=== PATIENT | female | born 1955 | race Caucasian/White ===

== ENCOUNTER → 2017-04-06 | Outpatient (CLI) | payer MEDICARE, OTHER ==
--- NOTE | 2017-04-08 07:10 | MM ---
Reason for exam: screening (asymptomatic). Last mammogram was performed 1 year ago. History: Patient is postmenopausal. Physical Findings: A clinical breast exam by your physician is recommended on an annual basis and results should be correlated with mammographic findings. MG 3D Screening Mammo W/Cad Bilateral CC and MLO view(s) were taken. Prior study comparison: March 30, 2016, bilateral MG 3d screening mammo w/cad. February 14, 2015, bilateral MG screening mammo w CAD. November 22, 2013, bilateral MG screening mammo w CAD. There are scattered fibroglandular densities. There is chronic nodularity in the left breast. Stable benign oil cysts. No significant changes when compared with prior studies. ASSESSMENT: Negative, BI-RAD 1 RECOMMENDATION: Routine screening mammogram of both breasts in 1 year.
== END ==
LOC: RADMAMWWP 09:23
PROVIDERS: ATTEND Family Medicine
DX: Z12.31 Encounter for screening mammogram for malignant neoplasm of breast (principal)
CPT/HCPCS: 77063; G0202

== ENCOUNTER → 2018-06-06 | Outpatient (CLI) | payer MEDICARE, OTHER ==
--- NOTE | 2018-06-07 13:07 | MM ---
Reason for exam: screening (asymptomatic). Last mammogram was performed 1 year and 2 months ago. History: Patient is postmenopausal. Physical Findings: A clinical breast exam by your physician is recommended on an annual basis and results should be correlated with mammographic findings. MG 3D Screening Mammo W/Cad Bilateral CC and MLO view(s) were taken. XCCL view(s) were taken of the right breast. Prior study comparison: April 06, 2017, bilateral MG 3d screening mammo w/cad. March 30, 2016, bilateral MG 3d screening mammo w/cad. The breast tissue is almost entirely fat. No significant changes when compared with prior studies. ASSESSMENT: Benign, BI-RAD 2 RECOMMENDATION: Routine screening mammogram of both breasts in 1 year.
== END | disposition home or self-care (01) ==
LOC: RADMAMWWP 12:56
PROVIDERS: ATTEND Family Medicine
DX: Z12.31 Encounter for screening mammogram for malignant neoplasm of breast (principal)
CPT/HCPCS: 77063; 77067

== ENCOUNTER → 2019-07-07 | Outpatient (CLI) | payer MEDICARE ==
--- NOTE | 2019-07-10 12:08 | MM ---
Reason for exam: screening (asymptomatic). Last mammogram was performed 1 year and 1 month ago. History: Patient is postmenopausal. Physical Findings: A clinical breast exam by your physician is recommended on an annual basis and results should be correlated with mammographic findings. MG 3D Screening Mammo W/Cad Bilateral CC, MLO, and XCCL view(s) were taken. Prior study comparison: June 06, 2018, bilateral MG 3d screening mammo w/cad. April 06, 2017, bilateral MG 3d screening mammo w/cad. There are scattered fibroglandular densities. Benign appearing bilateral calcifications. No suspicious abnormality. No significant changes when compared with prior studies. ASSESSMENT: Benign, BI-RAD 2 RECOMMENDATION: Routine screening mammogram of both breasts in 1 year.
== END | disposition home or self-care (01) ==
LOC: RADMAMWWP 11:08
PROVIDERS: ATTEND Family Medicine
DX: Z12.31 Encounter for screening mammogram for malignant neoplasm of breast (principal)
CPT/HCPCS: 77063; 77067

== ENCOUNTER → 2022-02-02 | Outpatient (CLI) | payer MEDICARE ==
--- NOTE | 2022-02-02 19:08 | CA ---
Transthoracic Echo Report Name: Johny Singh Age: 66 Gender: F : 1955 Exam Date: 02/02/2022 11:56 Exam Location: [facility] Ht (in): 61 Wt (lb): 214 Ordering Physician: Dioni Monroy DO Attending/Referring Phys: Insecticide Supervisor Laisha Perez RDCS Procedure CPT: Indications: i35.0 Cardiac Hx: Technical Quality: Fair Contrast 1: Total Dose (mL): Contrast 2: Total Dose (mL): MEASUREMENTS (Male / Female) Normal Values 2D ECHO LV Diastolic Diameter PLAX 4.7 cm 4.2 - 5.9 / 3.9 - 5.3 cm LV Systolic Diameter PLAX 3.5 cm IVS Diastolic Thickness 1.0 cm 0.6 - 1.0 / 0.6 - 0.9 cm LVPW Diastolic Thickness 1.3 cm 0.6 - 1.0 / 0.6 - 0.9 cm LV Relative Wall Thickness 0.5 RV Internal Dim ED PLAX 3.2 cm M-MODE Aortic Root Diameter MM 2.1 cm LA Systolic Diameter MM 3.5 cm LA Ao Ratio MM 1.7 MV E Point Septal Separation 0.5 cm AV Cusp Separation MM 1.4 cm DOPPLER AV Peak Velocity 241.2 cm/s AV Peak Gradient 23.3 mmHg AV Mean Velocity 164.9 cm/s AV Mean Gradient 12.4 mmHg AV Velocity Time Integral 52.6 cm LVOT Peak Velocity 109.5 cm/s LVOT Peak Gradient 4.8 mmHg MV Area PHT 3.6 cm??? Mitral E Point Velocity 61.6 cm/s Mitral A Point Velocity 88.7 cm/s Mitral E to A Ratio 0.7 MV Deceleration Time 210.9 ms FINDINGS Left Ventricle Left ventricular ejection fraction is estimated at 50-55%. Right Ventricle Normal right ventricular size and function. Right Atrium Normal right atrial size. Left Atrium Normal left atrial size. Mitral Valve Mitral valve not well visualized. Aortic Valve Aortic valve not well visualized. Mild aortic stenosis with a peak gradient of 23 mmHg and a mean gradient of 12 mmHg. Tricuspid Valve Tricuspid valve not well visualized. Pulmonic Valve Pulmonic valve not well visualized. Pericardium Normal pericardium. Aorta Aortic root and proximal ascending aorta not well visualized. CONCLUSIONS Technically difficult study with suboptimal acoustic windows LV function appears to be preserved Aortic valve is not well visualized. Mildly elevated [place] across the aortic valve Previewed by: Dr. Jose Guerra MD (Electronically Signed) Final Date: 02 February 2022 19:07
== END | disposition home or self-care (01) ==
LOC: RADECHMAIN 11:46
PROVIDERS: ATTEND Family Medicine
DX: I35.0 Nonrheumatic aortic (valve) stenosis (principal)
CPT/HCPCS: 93306

== ENCOUNTER 2023-01-03 21:09 | Inpatient (IN) | payer MEDICARE ==
[2023-01-03] MEDS ORDERED: IPRATROPIUM-ALBUTEROL 3 ML NEB INHALATION STA (21:40)
[2023-01-03] MEDS ORDERED: predniSONE 20 MG TAB PO STA (21:40)
--- NOTE | 2023-01-03 21:48 | ED ---
SOB HPI - General Chief Complaint: Shortness of Breath Stated Complaint: SOB Time Seen by Provider: 01/03/23 21:19 Source: patient Mode of arrival: wheelchair Limitations: no limitations - History of Present Illness Initial Comments: This patient is a 67-year-old woman who presents to have evaluation for worsening of her shortness of breath. She states she has history of COPD and probably some pulmonary fibrosis as well. She does not use home oxygen and she is not on daily steroids. She states that she believes that breathing the smog outside for the past 2 days has worsened her respiratory status. She has some wheezing, cough and some shortness of breath. She denies fever or chills. No chest pain. No real sputum. No change in urination or bowel movements. No leg pain or swelling. MD Complaint: shortness of breath, cough Onset/Timin -: days(s) Severity scale (1-10): 0 Consistency: constant Improves With: nothing Worsens With: nothing Known History Of: COPD Associated Symptoms: denies other symptoms - Related Data Home Medications Medication Instructions Recorded Confirmed Aspirin EC [Ecotrin Low Dose] 81 mg PO Q48H 01/03/23 01/03/23 Etanercept [Enbrel Sureclick] 50 mg SQ MO 01/03/23 01/03/23 Fluticasone/Umeclidin/Vilanter 1 puff INHALATION RT-DAILY 01/03/23 01/03/23 [Trelegy Ellipta 200-62.5-25] HYDROcodone/APAP 10-325MG [[place] 1 tab PO Q6H PRN 01/03/23 01/03/23 10-325] Ibuprofen [Motrin] 800 mg PO BID PRN 01/03/23 01/03/23 Metoprolol Succinate (ER) [Toprol 100 mg PO DAILY 01/03/23 01/03/23 XL] Potassium Chloride ER [K-Dur 20] 20 meq PO PC-SUPPER 01/03/23 01/03/23 Rosuvastatin [Crestor] 20 mg PO DAILY 01/03/23 01/03/23 hydroCHLOROthiazide [Hydrodiuril] 25 mg PO DAILY 01/03/23 01/03/23 metFORMIN HCL ER [Glucophage XR] 500 mg PO PC-SUPPER 01/03/23 01/03/23 Previous Rx's Medication Instructions Recorded Albuterol Inhaler [Ventolin Hfa 2 puff INHALATION Q4HR PRN #8 gm 01/04/23 Inhaler] predniSONE 60 mg PO DAILY #30 tab 01/04/23 Ipratropium-Albuterol Nebulize 3 ml INHALATION RT-QID PRN 30 Days 01/06/23 [Duoneb 0.5 mg-3 mg/3 ml Soln] #60 each Nicotine 14Mg/24Hr Patch [Habitrol] 1 patch TRANSDERM DAILY #7 patch 01/06/23 Allergies Allergy/AdvReac Type Severity Reaction Status Date / Time Penicillins Allergy Anaphylaxis Verified 01/03/23 21:52 codeine AdvReac Nausea & Verified 01/03/23 21:52 Vomiting Review of Systems ROS Statement: Those systems with pertinent positive or pertinent negative responses have been documented in the HPI. ROS Other: All systems not noted in ROS Statement are negative. Constitutional: Denies: fever, chills Respiratory: Reports: cough, dyspnea, wheezes. Denies: hemoptysis Cardiovascular: Denies: chest pain, palpitations, orthopnea, edema, syncope Gastrointestinal: Denies: abdominal pain, vomiting, diarrhea Genitourinary: Denies: dysuria, hematuria Musculoskeletal: Denies: back pain Skin: Denies: rash Neurological: Denies: headache, weakness Past Medical History Past Medical History: COPD, Fibromyalgia, Rheumatoid Arthritis (RA) History of Any Multi-Drug Resistant Organisms: None Reported Past Surgical History: Section, Cholecystectomy, Hysterectomy Past Psychological History: No Psychological Hx Reported Smoking Status: Current every day smoker Past Alcohol Use History: None Reported Past Drug Use History: Marijuana - Past Family History Father Family Medical History: Diabetes Mellitus, Myocardial Infarction (CO) Mother Family Medical History: COPD, Diabetes Mellitus Sister(s) Family Medical History: Cancer Additional Family Medical History / Comment(s): sister had brain cancer Brother(s) Family Medical History: Cancer Additional Family Medical History / Comment(s): 2 brothers had kidney cancer General Exam Limitations: no limitations General appearance: alert, in no apparent distress Head exam: Present: atraumatic, normocephalic Eye exam: Present: normal appearance. Absent: scleral icterus, conjunctival injection ENT exam: Present: normal oropharynx Neck exam: Present: normal inspection Respiratory exam: Present: wheezes. Absent: respiratory distress, rales, rhonchi, stridor, accessory muscle use, decreased breath sounds Cardiovascular Exam: Present: regular rate, normal rhythm, normal heart sounds. Absent: systolic murmur, diastolic murmur, rubs, gallop GI/Abdominal exam: Present: soft. Absent: distended, tenderness, guarding, rebound, rigid, mass Extremities exam: Present: normal inspection, normal capillary refill. Absent: pedal edema, calf tenderness Back exam: Present: normal inspection. Absent: CVA tenderness (R), CVA tenderness (L) Neurological exam: Present: alert Skin exam: Present: warm, dry, intact, normal color. Absent: rash Course Vital Signs 01/03/23 01/03/23 01/03/23 21:10 21:14 21:51 Temperature 98.8 F 98.3 F Pulse Rate 79 72 Pulse Rate [ Pulse Oximetery ] Respiratory 18 20 20 Rate Blood Pressure 165/79 151/75 O2 Sat by Pulse 100 84 L Oximetry 01/03/23 01/03/23 01/04/23 22:23 22:32 01:42 Temperature Pulse Rate 67 68 68 Pulse Rate [ Pulse Oximetery ] Respiratory Rate Blood Pressure O2 Sat by Pulse Oximetry 01/04/23 01/04/23 01/04/23 01:55 02:22 04:13 Temperature Pulse Rate 68 Pulse Rate [ Pulse Oximetery ] Respiratory 20 Rate Blood Pressure O2 Sat by Pulse 94 L 92 L Oximetry 01/04/23 01/04/23 01/04/23 06:06 07:33 08:00 Temperature 98.0 F Pulse Rate 64 77 Pulse Rate [ 78 Pulse Oximetery ] Respiratory 20 20 Rate Blood Pressure 135/85 153/96 O2 Sat by Pulse 94 L 91 L Oximetry Medical Decision Making - Medical Decision Making This patient is 67-year-old woman who presents with worsening of underlying COPD. She had wanted to go home but when she was taken off the oxygen each time she would have desaturations. Her oxygen saturations were into the mid 80s without oxygen. In light of this patient is admitted to continue steroid and inhaled medications. The patient had chest x-ray which I interpreted as being negative for acute infiltrate, pneumothorax, or significant pulmonary effusion Was pt. sent in by a medical professional or institution (, PA, BRIM CUTTER, urgent care, hospital, or snf...) When possible be specific @ -[No] Did you speak to anyone other than the patient for history (EMS, parent, family, police, friend...)? What history was obtained from this source @ -[No] Did you review nursing and triage notes (agree or disagree)? Why? @ -[I reviewed and agree with nursing and triage notes] Were old charts reviewed (outside hosp., previous admission, EMS record, old EKG, old radiological studies, urgent care reports/EKG's, snf records)? Report findings @ -[No old charts were reviewed] Differential Diagnosis (chest pain, altered mental status, abdominal pain women, abdominal pain men, vaginal bleeding, weakness, fever, dyspnea, syncope, headache, dizziness, GI bleed, back pain, seizure, CVA, palpatations, mental health, musculoskeletal)? @ -[Differential Dyspnea: Coronary syndrome, arrhythmia, tamponade, asthma, COPD, pulmonary embolism, pneumonia, pneumothorax, pulmonary effusion, anaphylaxis, diabetic ketoacidosis, flailed chest, pulmonary contusion, diaphragmatic rupture, anemia, neuromuscular, this is not meant to be an all-inclusive list. EKG interpreted by me (3pts min.). @ -[As above] X-rays interpreted by me (1pt min.). @ -[As above CT interpreted by me (1pt min.). @ -[None done] U/S interpreted by me (1pt. min.). @ -[None done] What testing was considered but not performed or refused? (CT, X-rays, U/S, labs)? Why? @ -[None] What meds were considered but not given or refused? Why? @ -[None] Did you discuss the management of the patient with other professionals (professionals i.e. , PA, BRIM CUTTER, lab, RT, psych nurse, social media executive, data officer, teacher, security police officer, returned case inspector)? Give summary @ -[Case discussed with admitting physician Was smoking cessation discussed for >3mins.? @ -[No] Was critical care preformed (if so, how long)? @ -[No] Were there social determinants of health that impacted care today? How? (Homelessness, low income, unemployed, alcoholism, drug addiction, transportation, low edu. Level, literacy, decrease access to med. care, half-way, rehab)? @ -[No] Was there de-escalation of care discussed even if they declined (Discuss DNR or withdrawal of care, Hospice)? DNR status @ -[No] What co-morbidities impacted this encounter? (DM, HTN, Smoking, COPD, CAD, Cancer, CVA, ARF, Chemo, Hep., AIDS, mental health diagnosis, sleep apnea, morbid obesity)? @ -[None] Was patient admitted / discharged? Hospital course, mention meds given and route, prescriptions, significant lab abnormalities, going to OR and other pertinent info. @ -[The patient was unable to tolerate ambulating without supplemental oxygen, therefore admitted for treatment of COPD exacerbation Undiagnosed new problem with uncertain prognosis? @ -[No] Drug Therapy requiring intensive monitoring for toxicity (Heparin, Nitro, Insulin, Cardizem)? @ -[No] Were any procedures done? @ -[No] Diagnosis/symptom? @ -[Acute exacerbation of COPD Acute, or Chronic, or Acute on Chronic? @ -[Acute on chronic Uncomplicated (without systemic symptoms) or Complicated (systemic symptoms)? @ -[Complicated by oxygen desaturation when walking Side effects of treatment? @ -[No] Exacerbation, Progression, or Severe Exacerbation? @ -[Exacerbation Poses a threat to life or bodily function? How? (Chest pain, [place], CO, pneumonia, PE, COPD, DKA, ARF, appy, cholecystitis, CVA, Diverticulitis, Homicidal, Suicidal, threat to staff... and all critical care pts) @ -[No] - Lab Data Result diagrams: 01/03/23 21:25 01/03/23 21:25 Lab Results 01/03/23 01/03/23 01/03/23 Range/Units 21:25 21:25 21:25 WBC 7.7 (3.8-10.6) k/uL RBC 6.05 H (3.80-5.40) m/uL Hgb 17.8 H (11.4-16.0) gm/dL Hct 56.0 H (34.0-46.0) % MCV 92.5 (80.0-100.0) fL MCH 29.5 (25.0-35.0) pg MCHC 31.9 (31.0-37.0) g/dL RDW 14.6 (11.5-15.5) % Plt Count 189 (150-450) k/uL MPV 8.2 Neutrophils % (Manual) 55 % Lymphocytes % (Manual) 26 % Monocytes % (Manual) 14 % Eosinophils % (Manual) 5 % Neutrophils # (Manual) 4.24 (1.3-7.7) k/uL Lymphocytes # (Manual) 2.00 (1.0-4.8) k/uL Monocytes # (Manual) 1.08 H (0-1.0) k/uL Eosinophils # (Manual) 0.39 (0-0.7) k/uL Nucleated RBCs 1 H (0-0) /100 WBC Large Platelets Present RBC Morphology Normal PT 10.7 (9.0-12.0) sec INR 1.0 (<1.2) APTT 24.8 (22.0-30.0) sec Sodium 138 (137-145) mmol/L Potassium 3.6 (3.5-5.1) mmol/L Chloride 100 (98-107) mmol/L Carbon Dioxide 31 H (22-30) mmol/L Anion Gap 7 mmol/L BUN 22 H (7-17) mg/dL Creatinine 0.66 (0.52-1.04) mg/dL Est GFR (CKD-EPI)AfAm >90 (>60 ml/min/1.73 sqM) Est GFR (CKD-EPI)NonAf >90 (>60 ml/min/1.73 sqM) Glucose 114 H (74-99) mg/dL Plasma Lactic Acid Chandu (0.7-2.0) mmol/L Calcium 8.8 (8.4-10.2) mg/dL Total Bilirubin 1.0 (0.2-1.3) mg/dL AST 40 H (14-36) U/L ALT 25 (4-34) U/L Alkaline Phosphatase 81 (38-126) U/L Troponin I (0.000-0.034) ng/mL NT-Pro-B Natriuret Pep pg/mL Total Protein 7.3 (6.3-8.2) g/dL Albumin 3.8 (3.5-5.0) g/dL 01/03/23 01/03/23 01/03/23 Range/Units 21:25 21:25 21:25 WBC (3.8-10.6) k/uL RBC (3.80-5.40) m/uL Hgb (11.4-16.0) gm/dL Hct (34.0-46.0) % MCV (80.0-100.0) fL MCH (25.0-35.0) pg MCHC (31.0-37.0) g/dL RDW (11.5-15.5) % Plt Count (150-450) k/uL MPV Neutrophils % (Manual) % Lymphocytes % (Manual) % Monocytes % (Manual) % Eosinophils % (Manual) % Neutrophils # (Manual) (1.3-7.7) k/uL Lymphocytes # (Manual) (1.0-4.8) k/uL Monocytes # (Manual) (0-1.0) k/uL Eosinophils # (Manual) (0-0.7) k/uL Nucleated RBCs (0-0) /100 WBC Large Platelets RBC Morphology PT (9.0-12.0) sec INR (<1.2) APTT (22.0-30.0) sec Sodium (137-145) mmol/L Potassium (3.5-5.1) mmol/L Chloride (98-107) mmol/L Carbon Dioxide (22-30) mmol/L Anion Gap mmol/L BUN (7-17) mg/dL Creatinine (0.52-1.04) mg/dL Est GFR (CKD-EPI)AfAm (>60 ml/min/1.73 sqM) Est GFR (CKD-EPI)NonAf (>60 ml/min/1.73 sqM) Glucose (74-99) mg/dL Plasma Lactic Acid Chandu 1.5 (0.7-2.0) mmol/L Calcium (8.4-10.2) mg/dL Total Bilirubin (0.2-1.3) mg/dL AST (14-36) U/L ALT (4-34) U/L Alkaline Phosphatase (38-126) U/L Troponin I 0.014 (0.000-0.034) ng/mL NT-Pro-B Natriuret Pep 455 pg/mL Total Protein (6.3-8.2) g/dL Albumin (3.5-5.0) g/dL - EKG Data -: EKG Interpreted by Me EKG shows normal: sinus rhythm, intervals (Normal), QRS complexes (Possible old anterior infarct.) Rate: normal (878 bpm) Disposition Clinical Impression: COPD exacerbation Disposition: ADMITTED IP TO THIS HOSP Condition: Fair Is patient prescribed a controlled substance at d/c from ED?: No
--- NOTE | 2023-01-03 22:06 | XR ---
EXAMINATION TYPE: XR chest 2V DATE OF EXAM: 01/03/2023 9:56 PM COMPARISON: None TECHNIQUE: XR chest 2V Frontal and lateral views of the chest. CLINICAL INDICATION:Female, 67 years old with history of difficulty breathing; FINDINGS: Lungs/Pleura: There is no evidence of pleural effusion, focal consolidation, or pneumothorax. Pulmonary vascularity: Pulmonary vascular congestion. Heart/mediastinum: Cardiomediastinal silhouette is enlarged and stable. Musculoskeletal: No acute osseous pathology. IMPRESSION: Cardiomegaly and mild pulmonary vascular congestion. Correlate with BNP for congestive heart failure.
[2023-01-03 22:17] LABS: HGB 17.8 gm/dL (11.4-16.0); MCH 29.5 pg (25.0-35.0); MCHC 31.9 g/dL (31.0-37.0); MCV 92.5 fL (80.0-100.0); Mean Platelet Volume 8.2; Platelet Count 189 k/uL (150-450); RBC 6.05 m/uL (3.80-5.40); RDW 14.6 % (11.5-15.5)
[2023-01-03 22:21] LABS: ALT 25 U/L (4-34); AST 40 U/L (14-36); African American GFR (CKD) >90 (>60 ml/min/1.73 sqM); Albumin 3.8 g/dL (3.5-5.0); Alkaline Phosphatase 81 U/L (38-126); Anion Gap 7 mmol/L; Blood Urea Nitrogen 22 mg/dL (7-17); Calcium 8.8 mg/dL (8.4-10.2); Carbon Dioxide 31 mmol/L (22-30); Chloride 100 mmol/L (98-107); Glucose 114 mg/dL (74-99); Non-African American GFR(CKD) >90 (>60 ml/min/1.73 sqM); Potassium 3.6 mmol/L (3.5-5.1); Sodium 138 mmol/L (137-145); Total Protein 7.3 g/dL (6.3-8.2)
[2023-01-03] MEDS ORDERED: ALBUTEROL NEBULIZED 2.5 MG/3 ML INHALATION STA (22:24)
[2023-01-03 22:30] LABS: Partial Thromboplastin Time 24.8 sec (22.0-30.0); Prothrombin Time 10.7 sec (9.0-12.0)
[2023-01-03 23:52] LABS: Eosinophils # (M) 0.39 k/uL (0-0.7); Monocytes # (M) 1.08 k/uL (0-1.0); Neutrophils # (M) 4.24 k/uL (1.3-7.7); Neutrophils % (M) 55 %; Nucleated Red Blood Cells 1 /100 WBC (0-0); Total Cells Counted 100; WBC 7.7 k/uL (3.8-10.6)
[2023-01-03 23:53] LABS: Large Platelets Present; RBC Morphology Normal
[2023-01-04] MEDS ORDERED: ALBUTEROL NEBULIZED 2.5 MG/3 ML INHALATION STA (01:36)
[2023-01-04] MEDS ORDERED: NALOXONE 0.4 MG/ML 1 ML VIAL IVP PRN (02:03)
[2023-01-04] MEDS ORDERED: IPRATROPIUM-ALBUTEROL 3 ML NEB INHALATION PRN (02:03)
--- NOTE | 2023-01-04 05:14 | P.CNPUL ---
History of Present Illness Consult date: 01/04/23 Requesting physician: Amandeep Carroll Reason for consult: COPD Chief complaint: Shortness of breath History of present illness: I am seeing this patient in new consultation today 01/04/2023 for acute COPD exacerbation. Patient is a 67-year-old white female with past medical history significant for COPD, rheumatoid arthritis, diabetes mellitus type 2, hypertension, hyperlipidemia, and and chronic nicotine dependence. Patient's COPD is managed by her primary care provider Ruth Stringer. She does not routinely follow with a radiation oncology manager. She manages her COPD with a combination of Trelegy and when necessary albuterol HFA on an outpatient basis. Patient states that her symptoms of shortness of breath started last Wednesday. She states that she has been working outside at a [employer], and has been exposed to the smoke from the [employer]. She attributes her symptoms to this. She denies any significant fever, chills, change in her chronic cough, chest pain, hemoptysis. She denies any sick contacts. Her shortness breath had progressively worsened, she states that she feels like she cannot get enough air, and came to the emergency room late last night. Patient is currently sitting at the edge of the bed, on 3 L/m nasal cannula, in no acute distress. She states that she is already breathing better compared to when she came in. Chest x-ray on arrival shows no focal consolidation or evidence of pneumonia. There was reported cardiomegaly and mild pulmonary vascular congestion. NT proBNP, however, was low at 455. Patient states that she has questionable lung disease related to her rheumatoid arthritis. She manages her rheumatoid arthritis with Enbrel. CBC on arrival showed a WBC count of 7.7, hemoglobin 17.8, hematocrit 36, platelets 189. BMP showed a sodium 138, potassium 3.6, chloride 100, serum bicarbonate 31, BUN 22, creatinine 0.66, glucose 114. Troponin was 0.014. Patient has not been started on empiric antibiotics, and I doubt that they are necessary. She is afebrile. She appears nontoxic, and vital signs are stable. She is going to be admitted to the general medical floor. Review of Systems REVIEW OF SYSTEMS: CONSTITUTIONAL: Denies any recent significant weight loss or weight gain. EYES: Denies change in vision. EARS, NOSE, MOUTH, THROAT: Denies headaches, denies sore throat. CARDIOVASCULAR: Denies chest pain, palpitations or syncopal episodes. RESPIRATORY: See HPI GASTROINTESTINAL: Denies change in appetite, abdominal pain, nausea and vomiting, or diarrhea GENITOURINARY: Denies hematuria, denies infections. MUSKULOSKELETAL: Denies pain, denies swelling. INTEGUMENTARY: Denies rash, denies eczema. NEUROLOGICAL: Denies recent memory loss, no recent seizure activity. PSYCHIATRIC: Denies anxiety, denies depression. HEMATOLOGIC/LYMPHATIC: Denies anemia, denies enlarged lymph node Past Medical History Past Medical History: COPD, Fibromyalgia, Rheumatoid Arthritis (RA) History of Any Multi-Drug Resistant Organisms: None Reported Past Surgical History: Section, Cholecystectomy, Hysterectomy Past Psychological History: No Psychological Hx Reported Smoking Status: Current every day smoker Past Alcohol Use History: None Reported Past Drug Use History: Marijuana Medications and Allergies Home Medications Medication Instructions Recorded Confirmed Type Albuterol Sulfate [Albuterol 2 puff PO RT-Q6H PRN 01/03/23 01/03/23 History Sulfate Hfa] Aspirin EC [Ecotrin Low Dose] 81 mg PO Q48H 01/03/23 01/03/23 History Etanercept [Enbrel Sureclick] 50 mg SQ MO 01/03/23 01/03/23 History Fluticasone/Umeclidin/Vilanter 1 puff INHALATION RT-DAILY 01/03/23 01/03/23 History [Trelegy Ellipta 200-62.5-25] HYDROcodone/APAP 10-325MG [[place] 1 tab PO Q6H PRN 01/03/23 01/03/23 History 10-325] Ibuprofen [Motrin] 800 mg PO BID PRN 01/03/23 01/03/23 History Metoprolol Succinate (ER) [Toprol 100 mg PO DAILY 01/03/23 01/03/23 History Xl] Potassium Chloride ER [K-Dur 20] 20 meq PO PC-SUPPER 01/03/23 01/03/23 History Rosuvastatin [Crestor] 20 mg PO DAILY 01/03/23 01/03/23 History hydroCHLOROthiazide [Hydrodiuril] 25 mg PO DAILY 01/03/23 01/03/23 History metFORMIN HCL ER [Glucophage XR] 500 mg PO PC-SUPPER 01/03/23 01/03/23 History Albuterol Inhaler [Ventolin Hfa 2 puff INHALATION Q4HR PRN #8 gm 01/04/23 Rx Inhaler] predniSONE 60 mg PO DAILY #30 tab 01/04/23 Rx Allergies Allergy/AdvReac Type Severity Reaction Status Date / Time Penicillins Allergy Anaphylaxis Verified 01/03/23 21:52 codeine AdvReac Nausea & Verified 01/03/23 21:52 Vomiting Physical Exam Vitals: Vital Signs Temp Pulse Resp BP Pulse Ox 01/04/23 04:13 92 L 01/04/23 02:22 20 94 L 01/04/23 01:55 68 01/04/23 01:42 68 01/03/23 22:32 68 01/03/23 22:23 67 01/03/23 21:51 20 01/03/23 21:14 98.3 F 72 20 151/75 84 L 01/03/23 21:10 98.8 F 79 18 165/79 100 Intake and Output 01/03/23 01/03/23 01/04/23 14:59 22:59 06:59 Other: Weight 99.79 kg GENERAL EXAM: Alert, 67-year-old white female , comfortable in no apparent distress. HEAD: Normocephalic and atraumatic EYES: Normal reaction of pupils, equal size. NOSE: Clear with pink turbinates. THROAT: No erythema or exudates. NECK: No masses, no JVD. CHEST: No chest wall deformity. LUNGS: Equal air entry with expiratory wheezes heard bilaterally and throughout. Scattered posterior crackles. On 3 L/m nasal cannula. No conversational dyspnea or accessory muscle use.. CVS: S1 and S2 normal with no audible murmur, regular rhythm. No extra heart sounds ABDOMEN: No hepatosplenomegaly, active bowel sounds, no guarding or rigidity. SPINE: No scoliosis or deformity SKIN: No rashes CENTRAL NERVOUS SYSTEM: No focal deficits, tone is normal in all 4 extremities. EXTREMITIES: There is no peripheral edema, clubbing, or cyanosis. Peripheral p ulses are intact. Results - Laboratory Findings CBC and BMP: 01/03/23 21:25 01/03/23 21:25 PT/INR, D-dimer PT 10.7 sec (9.0-12.0) 01/03/23 21:25 INR 1.0 (<1.2) 01/03/23 21:25 Abnormal lab findings: Abnormal Labs 01/03/23 01/03/23 21:25 21:25 RBC 6.05 H Hgb 17.8 H Hct 56.0 H Monocytes # (Manual) 1.08 H Nucleated RBCs 1 H Carbon Dioxide 31 H BUN 22 H Glucose 114 H AST 40 H - Diagnostic Findings Chest x-ray: image reviewed Assessment and Plan Assessment: Acute COPD exacerbation, possibly related to environmental exposure. Chest x- ray shows no evidence of focal consolidation or pneumonia. There was questionable cardiomegaly and mild pulmonary vascular congestion, however, NT proBNP level was low at 455. COVID-19 testing is pending. Acute hypoxemic respiratory failure secondary to above, currently on 3 L/m nasal cannula Rheumatoid arthritis, managed with Enbrel Polycythemia, possibly secondary to chronic hypoxia Chronic nicotine dependence, reports that she has been limiting her cigarettes to less than a half-pack in one week. Plan: Patient's medications, labs, chest x-ray reviewed Continue supplemental oxygen Start patient on combination of bronchodilators, Symbicort, IV Solu-Medrol Check for COVID-19 Patient appears nontoxic, is lacking infectious symptoms, no leukocytosis, afebrile. It is reasonable to hold off on antibiotics. Smoking cessation education performed Nicotine replacement offered We will continue to follow I have personally seen and examined the patient, performed the documentation and the assessment and plan as written. Number of minutes spent on the visit:20 Time with Patient: Greater than 30
[2023-01-04] MEDS: methylPREDNISolone SOD SUCCI 125 MG/2 ML VIAL IV SCH ×4 (06:02→23:59)
[2023-01-04] MEDS: SYMBICORT 160-4.5 MCG INHALER INHALATION SCH ×2 (08:41→20:41)
[2023-01-04] MEDS: IPRATROPIUM-ALBUTEROL 3 ML NEB INHALATION SCH ×4 (08:41→20:41)
[2023-01-04] MEDS ORDERED: predniSONE 20 MG TAB PO SCH (09:00)
[2023-01-04] MEDS: NICOTINE 14MG/24HR PATCH TRANSDERM SCH (09:22)
[2023-01-04] MEDS ORDERED: HYDROcodone/APAP 10-325MG 1 EACH TAB PO PRN (10:47)
[2023-01-04] MEDS ORDERED: DEXTROSE 50% SYRINGE 50 ML IVP PRN ×2 (10:48)
--- NOTE | 2023-01-04 10:49 | P.HPIM ---
History of Present Illness This is a pleasant 67 years old female with past medical history of diabetes mellitus, hypertension, hyperlipidemia, COPD Presents because of dyspnea , slowly progressive over one week associated with thick of white phlegm but no chest pain She supposed to follow up with Dr. Gracia but she hasn't done for many years. She follow up with her PCP Dr. Monroy. She smokes cigarettes and cut down to 8 cigarettes per week recently and she was counseled to quit and decided to quit and she declines nicotine patch. No alcohol or illicit drugs. Any other symptoms. No chest pain. No change in urine or bowel habits. No fever. She is not on home oxygen. She is saturating 88% on 38 oxygen this morning Labs showing polycythemia with hemoglobin 17.8 INR is 1.0. BMP and liver enzymes were unremarkable. All counts starting this 0.04 which is normal. Coronavirus nondetected. Chest x-ray: Cardiomegaly and mild pulmonary vascular congestion however proBNP is only 455. EKG showing normal sinus rhythm at [address]-T changes Review of Systems Review of systems CONSTITUTIONAL: No fever, no malaise, no fatigue. HEENT: No recent visual problems or hearing problems. Denied any sore throat. CARDIOVASCULAR: No orthopnea, PND, no palpitations, no syncope. PULMONARY: No chest wall tenderness, no hemoptysis. GASTROINTESTINAL: No diarrhea, no nausea, no vomiting, no abdominal pain. Normoactive bowel sounds. NEUROLOGICAL: No headaches, no weakness, no numbness. HEMATOLOGICAL: Denies any bleeding or petechiae. GENITOURINARY: Denies any burning micturition, frequency, or urgency. MUSCULOSKELETAL/RHEUMATOLOGICAL: Denies any joint pain, swelling, or any muscle pain. ENDOCRINE: Denies any polyuria or polydipsia. Past Medical History Past Medical History: COPD, Fibromyalgia, Rheumatoid Arthritis (RA) History of Any Multi-Drug Resistant Organisms: None Reported Past Surgical History: Section, Cholecystectomy, Hysterectomy Past Psychological History: No Psychological Hx Reported Smoking Status: Current every day smoker Past Alcohol Use History: None Reported Past Drug Use History: Marijuana Medications and Allergies Home Medications Medication Instructions Recorded Confirmed Type Albuterol Sulfate [Albuterol 2 puff PO RT-Q6H PRN 01/03/23 01/03/23 History Sulfate Hfa] Aspirin EC [Ecotrin Low Dose] 81 mg PO Q48H 01/03/23 01/03/23 History Etanercept [Enbrel Sureclick] 50 mg SQ MO 01/03/23 01/03/23 History Fluticasone/Umeclidin/Vilanter 1 puff INHALATION RT-DAILY 01/03/23 01/03/23 Hi story [Trelegy Ellipta 200-62.5-25] HYDROcodone/APAP 10-325MG [[place] 1 tab PO Q6H PRN 01/03/23 01/03/23 History 10-325] Ibuprofen [Motrin] 800 mg PO BID PRN 01/03/23 01/03/23 History Metoprolol Succinate (ER) [Toprol 100 mg PO DAILY 01/03/23 01/03/23 History Xl] Potassium Chloride ER [K-Dur 20] 20 meq PO PC-SUPPER 01/03/23 01/03/23 History Rosuvastatin [Crestor] 20 mg PO DAILY 01/03/23 01/03/23 History hydroCHLOROthiazide [Hydrodiuril] 25 mg PO DAILY 01/03/23 01/03/23 History metFORMIN HCL ER [Glucophage XR] 500 mg PO PC-SUPPER 01/03/23 01/03/23 History Albuterol Inhaler [Ventolin Hfa 2 puff INHALATION Q4HR PRN #8 gm 01/04/23 Rx Inhaler] predniSONE 60 mg PO DAILY #30 tab 01/04/23 Rx Allergies Allergy/AdvReac Type Severity Reaction Status Date / Time Penicillins Allergy Anaphylaxis Verified 01/03/23 21:52 codeine AdvReac Nausea & Verified 01/03/23 21:52 Vomiting Physical Exam Vitals: Vital Signs Temp Pulse Pulse Resp BP BP Pulse Ox 01/04/23 08:56 80 01/04/23 08:46 78 88 L 01/04/23 08:23 98.0 F 78 18 151/80 93 L 01/04/23 07:33 98.0 F 77 20 153/96 91 L 01/04/23 06:06 64 20 135/85 94 L 01/04/23 04:13 92 L 01/04/23 02:22 20 94 L 01/04/23 01:55 68 01/04/23 01:42 68 01/03/23 22:32 68 01/03/23 22:23 67 01/03/23 21:51 20 01/03/23 21:14 98.3 F 72 20 151/75 84 L 01/03/23 21:10 98.8 F 79 18 165/79 100 Intake and Output 01/03/23 01/04/23 01/04/23 22:59 06:59 14:59 Other: Weight 99.79 kg GENERAL: The patient is alert and oriented x3, not in any acute distress. Well developed, well nourished. HEENT: Pupils are round and equally reacting to light. EOMI. No scleral icterus. No conjunctival pallor. Normocephalic, atraumatic. No pharyngeal erythema. No thyromegaly. CARDIOVASCULAR: S1 and S2 present. No murmurs, rubs, or gallops. -PULMONARY: Chest is clear to auscultation, bilateral scattered wheezing , no crackles. ABDOMEN: Soft, nontender, nondistended, normoactive bowel sounds. No palpable organomegaly. MUSCULOSKELETAL: No joint swelling or deformity. EXTREMITIES: No cyanosis, clubbing, or pedal edema. NEUROLOGICAL: Gross neurological examination did not reveal any focal deficits. SKIN: No rashes. no petechiae. Results CBC & Chem 7: 01/03/23 21:25 01/03/23 21:25 Labs: Abnormal Lab Results - Last 24 Hours (Table) 01/03/23 01/03/23 Range/Units 21:25 21:25 RBC 6.05 H (3.80-5.40) m/uL Hgb 17.8 H (11.4-16.0) gm/dL Hct 56.0 H (34.0-46.0) % Monocytes # (Manual) 1.08 H (0-1.0) k/uL Nucleated RBCs 1 H (0-0) /100 WBC Carbon Dioxide 31 H (22-30) mmol/L BUN 22 H (7-17) mg/dL Glucose 114 H (74-99) mg/dL AST 40 H (14-36) U/L Assessment and Plan Assessment: Acute COPD exacerbation Acute hypoxic respiratory failure polycythemia most likely secondary to chronic hypoxia Diabetes mellitus Hypertension Hyperlipidemia History of osteoarthritis Hypothyroidism Obesity with BMI of 40 point Plan: Continue with steroids Continue with oxygen Continue with a bronchodilator Pulmonary consult Labs and medication were reviewed.. Continue same treatment. Continue with symptomatic treatment. Resume home medication. Monitor lytes and vitals. DVT and GI prophylaxis. Further recommendations depends on the clinical course of the patient DVT prophylaxis: Subcutaneous heparin GI Prophylaxis: Pepcid PT/OT: Pending Prognosis is guarded
[2023-01-04 11:54] LABS: Glucose,Whole Blood 198 mg/dL (70-110)
[2023-01-04] MEDS: INSULIN ASPART (NovoLOG) 100 UNIT/ML VIAL SQ SCH ×3 (12:33→21:24)
[2023-01-04] MEDS: AZITHROMYCIN 500 MG TAB PO SCH (12:33)
[2023-01-04 16:48] LABS: Glucose,Whole Blood 156 mg/dL (70-110)
[2023-01-04] MEDS: metFORMIN 500 MG TAB PO SCH (17:42)
[2023-01-04 20:53] LABS: Glucose,Whole Blood 173 mg/dL (70-110)
[2023-01-04] MEDS: FAMOTIDINE 20 MG/2 ML VIAL IV SCH (21:24)
[2023-01-04] MEDS: HEPARIN SODIUM,PORCINE/PF 5,000 UNIT/0.5 ML SYRINGE SQ SCH (21:25)
[2023-01-05 06:23] LABS: Glucose,Whole Blood 147 mg/dL (70-110)
[2023-01-05] MEDS: methylPREDNISolone SOD SUCCI 125 MG/2 ML VIAL IV SCH (06:48)
[2023-01-05] MEDS ORDERED: SODIUM CHLORIDE 0.65% NASAL SPRAY 44 ML BTL NASAL PRN (06:50)
[2023-01-05] MEDS: INSULIN ASPART (NovoLOG) 100 UNIT/ML VIAL SQ SCH ×4 (06:59→21:16)
[2023-01-05] MEDS: hydroCHLOROthiazide 25 MG TAB PO SCH (08:36)
[2023-01-05] MEDS: AZITHROMYCIN 500 MG TAB PO SCH (08:36)
[2023-01-05] MEDS: NICOTINE 14MG/24HR PATCH TRANSDERM SCH (08:37)
[2023-01-05] MEDS: metFORMIN 500 MG TAB PO SCH ×2 (08:37→17:11)
[2023-01-05] MEDS: METOPROLOL SUCCINATE (ER) 100 MG TAB.ER.24H PO SCH (08:37)
[2023-01-05] MEDS: FAMOTIDINE 20 MG/2 ML VIAL IV SCH ×2 (08:37→21:15)
[2023-01-05] MEDS: HEPARIN SODIUM,PORCINE/PF 5,000 UNIT/0.5 ML SYRINGE SQ SCH ×3 (08:37→21:15)
[2023-01-05] MEDS ORDERED: ASPIRIN 81 MG PO SCH (09:00)
[2023-01-05] MEDS: SYMBICORT 160-4.5 MCG INHALER INHALATION SCH ×2 (09:15→20:31)
[2023-01-05] MEDS: IPRATROPIUM-ALBUTEROL 3 ML NEB INHALATION SCH ×4 (09:15→20:31)
[2023-01-05 11:10] LABS: Glucose,Whole Blood 140 mg/dL (70-110)
--- NOTE | 2023-01-05 12:32 | P.PN ---
Subjective Progress Note Date: 01/05/23 I am seeing this patient in new consultation today 01/04/2023 for acute COPD exacerbation. Patient is a 67-year-old white female with past medical history significant for COPD, rheumatoid arthritis, diabetes mellitus type 2, hypertension, hyperlipidemia, and and chronic nicotine dependence. Patient's [place] is managed by her primary care provider Ruth Stringer. She does not routinely follow with a senior test engineer. She manages her COPD with a combination of Trelegy and when necessary albuterol HFA on an outpatient basis. Patient states that her symptoms of shortness of breath started last Wednesday. She states that she has been working outside at a [employer], and has been exposed to the smoke from the [employer] fires. She attributes her symptoms to this. She denies any significant fever, chills, change in her chronic cough, chest pain, hemoptysis. She denies any sick contacts. Her shortness breath had progressively worsened, she states that she feels like she cannot get enough air, and came to the emergency room late last night. Patient is currently sitting at the edge of the bed, on 3 L/m nasal cannula, in no acute distress. She states that she is already breathing better compared to when she came in. Chest x-ray on arrival shows no focal consolidation or evidence of pneumonia. There was reported cardiomegaly and mild pulmonary vascular congestion. NT proBNP, however, was low at 455. Patient states that she has questionable lung disease related to her rheumatoid arthritis. She manages her rheumatoid arthritis with Enbrel. CBC on arrival showed a WBC count of 7.7, hemoglobin 17.8, hematocrit 36, platelets 189. BMP showed a sodium 138, potassium 3.6, chloride 100, serum bicarbonate 31, BUN 22, creatinine 0.66, glucose 114. Troponin was 0.014. Patient has not been started on empiric antibiotics, and I doubt that they are necessary. She is afebrile. She appears nontoxic, and vital signs are stable. She is going to be admitted to the general medical floor. The patient is seen today 01/05/2023 in follow-up on the regular medical floor. She is currently sitting up at the bedside. Awake and alert in no acute distress. Maintaining good O2 saturations in the 90s on 3 L/m per nasal cannula. She's been afebrile. Hemodynamically stable. Glucose 140. She is continued on DuoNeb inhalations, Symbicort, Solu-Medrol. NicoDerm patches in place. Heparin for DVT prophylaxis. Empiric antibiotics in the form of azithromycin. Objective - Vital Signs Vital signs: Vital Signs Temp 97.6 F 01/05/23 07:20 Pulse 82 01/05/23 12:15 Resp 17 01/05/23 07:20 BP 117/65 01/05/23 07:20 Pulse Ox 94 L 01/05/23 09:16 FiO2 Intake & Output 01/04/23 01/05/23 01/05/23 18:59 06:59 18:59 Weight 97.98 kg Other: Voiding Method Toilet # Voids 3 1 - Exam GENERAL EXAM: Alert, very pleasant 67-year-old female, 3 L nasal cannula, comfortable in no apparent distress. HEAD: Normocephalic and atraumatic EYES: Normal reaction of pupils, equal size. NOSE: Clear with pink turbinates. THROAT: No erythema or exudates. NECK: No masses, no JVD. CHEST: No chest wall deformity. LUNGS: Equal air entry with expiratory wheezes heard bilaterally and throughout. Scattered posterior crackles. CVS: S1 and S2 normal with no audible murmur, regular rhythm. No extra heart sounds ABDOMEN: No hepatosplenomegaly, active bowel sounds, no guarding or rigidity. SPINE: No scoliosis or deformity SKIN: No rashes CENTRAL NERVOUS SYSTEM: No focal deficits, tone is normal in all 4 extremities. EXTREMITIES: There is no peripheral edema, clubbing, or cyanosis. Peripheral pulses are intact. - Labs CBC & Chem 7: 01/03/23 21:25 01/03/23 21:25 Labs: Abnormal Lab Results - Last 24 Hours (Table) 01/04/23 01/04/23 01/05/23 Range/Units 16:46 20:51 06:21 POC Glucose (mg/dL) 156 H 173 H 147 H (70-110) mg/dL 01/05/23 Range/Units 11:08 POC Glucose (mg/dL) 140 H (70-110) mg/dL Assessment and Plan Assessment: Acute COPD exacerbation, possibly related to environmental exposure. Chest x-ra y shows no evidence of focal consolidation or pneumonia. There was questionable cardiomegaly and mild pulmonary vascular congestion, however, NT proBNP level was low at 455. COVID-19 testing negative. Pro-calcitonin 0.04 Acute hypoxemic respiratory failure secondary to above, currently on 3 L/m nasal cannula Rheumatoid arthritis, managed with Enbrel Polycythemia, possibly secondary to chronic hypoxia Chronic nicotine dependence, reports that she has been limiting her cigarettes to less than a half-pack in one week Plan: The patient was seen and evaluated Labs and medications reviewed Continue the current treatment plan Titrate down the FiO2 as tolerated Increase activity as tolerated Educated regarding the importance of complete smoking cessation Probable discharge in the a.m. We will continue to follow I have personally seen and examined the patient, performed the documentation and the assessment and plan as written. Number of minutes spent on the visit: 10.
[2023-01-05 16:41] LABS: Glucose,Whole Blood 151 mg/dL (70-110)
[2023-01-05] MEDS: methylPREDNISolone SOD SUCCI 40 MG/ML 1 ML VIAL IV SCH (17:11)
[2023-01-05 20:42] LABS: Glucose,Whole Blood 139 mg/dL (70-110)
[2023-01-06] MEDS: methylPREDNISolone SOD SUCCI 40 MG/ML 1 ML VIAL IV SCH ×2 (00:36→08:02)
[2023-01-06 06:32] LABS: Glucose,Whole Blood 139 mg/dL (70-110)
[2023-01-06] MEDS: INSULIN ASPART (NovoLOG) 100 UNIT/ML VIAL SQ SCH ×2 (07:04→11:56)
[2023-01-06] MEDS: FAMOTIDINE 20 MG/2 ML VIAL IV SCH (08:02)
--- NOTE | 2023-01-06 08:58 | P.PN ---
Subjective Date of service 01/05/2023 This is a pleasant 67 years old female with past medical history of diabetes mellitus, hypertension, hyperlipidemia, COPD Presents because of dyspnea , slowly progressive over one week associated with thick of white phlegm but no chest pain She supposed to follow up with Dr. Gracia but she hasn't done for many years. She follow up with her PCP Dr. Monroy. She smokes cigarettes and cut down to 8 cigarettes per week recently and she was counseled to quit and decided to quit and she declines nicotine patch. No al cohol or illicit drugs. Any other symptoms. No chest pain. No change in urine or bowel habits. No fever. She is not on home oxygen. She is saturating 88% on 38 oxygen this morning Labs showing polycythemia with hemoglobin 17.8 INR is 1.0. BMP and liver enzymes were unremarkable. All counts starting this 0.04 which is normal. Coronavirus nondetected. Chest x-ray: Cardiomegaly and mild pulmonary vascular congestion however proBNP is only 455. EKG showing normal sinus rhythm at [address]-T changes Patient is seen and examined by me on 01/05/2023 at bedside. She was admitted with acute COPD exacerbation and placed on Solu-Medrol 60 mg, today she is less wheezing and shortness of breath She still have mild occasional coughing. But denies chest pain. Hemodynamically stable. Sugar control. Steroid dose was lowered by pulmonary team got 40 mg. Patient remains on aspi rin 81 mg Objective - Vital Signs Vital signs: Vital Signs Temp 97.8 F 01/06/23 07:27 Pulse 69 01/06/23 07:27 Resp 16 01/06/23 07:27 BP 117/64 01/06/23 07:27 Pulse Ox 91 L 01/06/23 07:27 FiO2 Intake & Output 01/05/23 01/06/23 01/06/23 18:59 06:59 18:59 Other: # Voids 4 3 # Bowel Movements 1 - Exam GENERAL: The patient is alert and oriented x3, not in any acute distress. Well developed, well nourished. HEENT: Pupils are round and equally reacting to light. EOMI. No scleral icterus. No conjunctival pallor. Normocephalic, atraumatic. No pharyngeal erythema. No thyromegaly. CARDIOVASCULAR: S1 and S2 present. No murmurs, rubs, or gallops. -PULMONARY: Chest is clear to auscultation, bilateral expiratory wheezing . no crackles. ABDOMEN: Soft, nontender, nondistended, normoactive bowel sounds. No palpable organomegaly. MUSCULOSKELETAL: No joint swelling or deformity. EXTREMITIES: No cyanosis, clubbing, . No leg edema. NEUROLOGICAL: Gross neurological examination did not reveal any focal deficits. SKIN: No rashes. no petechiae. - Labs CBC & Chem 7: 01/03/23 21:25 01/03/23 21:25 Labs: Abnormal Lab Results - Last 24 Hours (Table) 01/05/23 01/05/23 01/05/23 Range/Units 08:14 11:08 16:41 POC Glucose (mg/dL) 140 H 151 H (70-110) mg/dL Hemoglobin A1c 6.9 H (<=6.0) % 01/05/23 01/06/23 Range/Units 20:41 06:30 POC Glucose (mg/dL) 139 H 139 H (70-110) mg/dL Hemoglobin A1c (<=6.0) % Assessment and Plan Assessment: Acute COPD exacerbation Acute hypoxic respiratory failure polycythemia most likely secondary to chronic hypoxia Diabetes mellitus Hypertension Hyperlipidemia History of osteoarthritis Hypothyroidism Obesity with BMI of 40 point Plan: Continue with steroids Continue with oxygen Continue with a bronchodilator Pulmonary consult Labs and medication were reviewed.. Continue same treatment. Continue with symptomatic treatment. Resume home medication. Monitor lytes and vitals. DVT and GI prophylaxis. Further recommendations depends on the clinical course of the patient DVT prophylaxis: Subcutaneous heparin GI Prophylaxis: Pepcid PT/OT: Pending Prognosis is guarded
[2023-01-06] MEDS: HEPARIN SODIUM,PORCINE/PF 5,000 UNIT/0.5 ML SYRINGE SQ SCH (09:21)
[2023-01-06] MEDS: NICOTINE 14MG/24HR PATCH TRANSDERM SCH (09:21)
[2023-01-06] MEDS: METOPROLOL SUCCINATE (ER) 100 MG TAB.ER.24H PO SCH (09:21)
[2023-01-06] MEDS: metFORMIN 500 MG TAB PO SCH (09:22)
[2023-01-06] MEDS: AZITHROMYCIN 500 MG TAB PO SCH (09:22)
[2023-01-06] MEDS: hydroCHLOROthiazide 25 MG TAB PO SCH (09:22)
[2023-01-06] MEDS: IPRATROPIUM-ALBUTEROL 3 ML NEB INHALATION SCH ×3 (09:51→16:27)
[2023-01-06] MEDS: SYMBICORT 160-4.5 MCG INHALER INHALATION SCH (09:52)
[2023-01-06 11:02] LABS: Glucose,Whole Blood 136 mg/dL (70-110)
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
--- NOTE | 2023-01-06 12:51 | P.DS ---
Providers Date of admission: 01/04/23 02:03 Expected date of discharge: 01/06/23 Attending physician: Karan Amador Consults: 01/04/23 03:36 Consult Physician Routine Consulting Provider: Tammy Gracia Consult Reason/Comments: your patient. COPD/fibrosis Do you want consulting provider notified?: Yes Primary care physician: Dioni Monroy [facility] Course: Discharge diagnoses; Acute COPD exacerbation Acute hypoxic respiratory failure polycythemia most likely secondary to chronic hypoxia Diabetes mellitus Hypertension Hyperlipidemia History of osteoarthritis Hypothyroidism Obesity with BMI of 40 point Hospital course; This is a pleasant 67 years old female with past medical history of diabetes mellitus, hypertension, hyperlipidemia, COPD Presents because of dyspnea , slowly progressive over one week associated with thick of white phlegm but no chest pain She supposed to follow up with Dr. Gracia but she hasn't done for many years. She follow up with her PCP Dr. Monroy. She smokes cigarettes and cut down to 8 cigarettes per week recently and she was counseled to quit and decided to quit and she declines nicotine patch. No alcohol or illicit drugs. Any other symptoms. No chest pain. No change in urine or bowel habits. No fever. She is not on home oxygen. She is saturating 88% on 38 oxygen this morning Labs showing polycythemia with hemoglobin 17.8 INR is 1.0. BMP and liver enzymes were unremarkable. All counts starting this 0.04 which is normal. Coronavirus nondetected. Chest x-ray: Cardiomegaly and mild pulmonary vascular congestion however proBNP is only 455. EKG showing normal sinus rhythm at [address]-T changes 7/5. Patient seen and examined. Currently on 2 L of oxygen. States she feels much better. States she is ready go home. Patient had walking resting pulse ox done prior to discharge. Being discharged on prednisone and inhalers. PHYSICAL EXAMINATION: GENERAL: The patient is alert and oriented x3, not in any acute distress. Well developed, well nourished. HEENT: Pupils are round and equally reacting to light. EOMI. No scleral icterus. No conjunctival pallor. Normocephalic, atraumatic. No pharyngeal erythema. No thyromegaly. CARDIOVASCULAR: S1 and S2 present. No murmurs, rubs, or gallops. PULMONARY: Chest is clear to auscultation, no wheezing or crackles. ABDOMEN: Soft, nontender, nondistended, normoactive bowel sounds. No palpable organomegaly. MUSCULOSKELETAL: No joint swelling or deformity. EXTREMITIES: No cyanosis, clubbing, or pedal edema. NEUROLOGICAL: Gross neurological examination did not reveal any focal deficits. SKIN: No rashes. Patient Condition at Discharge: Fair Plan - Discharge Summary Discharge Rx Participant: No New Discharge Prescriptions: New Albuterol Inhaler [Ventolin Hfa Inhaler] 2 puff INHALATION Q4HR PRN #8 gm PRN Reason: Wheezing Nicotine 14Mg/24Hr Patch [Habitrol] 1 patch TRANSDERM DAILY #7 patch predniSONE 60 mg PO DAILY #30 tab Continue Rosuvastatin [Crestor] 20 mg PO DAILY Potassium Chloride ER [K-Dur 20] 20 meq PO PC-SUPPER hydroCHLOROthiazide [Hydrodiuril] 25 mg PO DAILY Ibuprofen [Motrin] 800 mg PO BID PRN PRN Reason: Pain HYDROcodone/APAP 10-325MG [[place] 10-325] 1 tab PO Q6H PRN PRN Reason: Pain Etanercept [Enbrel Sureclick] 50 mg SQ MO Albuterol Sulfate [Albuterol Sulfate Hfa] 2 puff PO RT-Q6H PRN PRN Reason: Shortness Of Breath Fluticasone/Umeclidin/Vilanter [Trelegy Ellipta 200-62.5-25] 1 puff INHALATION RT-DAILY Aspirin EC [Ecotrin Low Dose] 81 mg PO Q48H metFORMIN HCL ER [Glucophage XR] 500 mg PO PC-SUPPER Metoprolol Succinate (ER) [Toprol XL] 100 mg PO DAILY Discharge Medication List Albuterol Sulfate [Albuterol Sulfate Hfa] 2 puff PO RT-Q6H PRN 01/03/23 [History] Aspirin EC [Ecotrin Low Dose] 81 mg PO Q48H 01/03/23 [History] Etanercept [Enbrel Sureclick] 50 mg SQ MO 01/03/23 [History] Fluticasone/Umeclidin/Vilanter [Trelegy Ellipta 200-62.5-25] 1 puff INHALATION RT-DAILY 01/03/23 [History] HYDROcodone/APAP 10-325MG [[place] 10-325] 1 tab PO Q6H PRN 01/03/23 [History] Ibuprofen [Motrin] 800 mg PO BID PRN 01/03/23 [History] Metoprolol Succinate (ER) [Toprol XL] 100 mg PO DAILY 01/03/23 [History] Potassium Chloride ER [K-Dur 20] 20 meq PO PC-SUPPER 01/03/23 [History] Rosuvastatin [Crestor] 20 mg PO DAILY 01/03/23 [History] hydroCHLOROthiazide [Hydrodiuril] 25 mg PO DAILY 01/03/23 [History] metFORMIN HCL ER [Glucophage XR] 500 mg PO PC-SUPPER 01/03/23 [History] Albuterol Inhaler [Ventolin Hfa Inhaler] 2 puff INHALATION Q4HR PRN #8 gm 01/04/23 [Rx] predniSONE 60 mg PO DAILY #30 tab 01/04/23 [Rx] Nicotine 14Mg/24Hr Patch [Habitrol] 1 patch TRANSDERM DAILY #7 patch 01/06/23 [Rx] Follow up Appointment(s)/Referral(s): Daniel Quijano DO [Doctor of Osteopathic Medicine] - 01/20/23 9:30 am Dioni Monroy DO [Primary Care Provider] - 1-2 days Patient Instructions/Handouts: COPD (Chronic Obstructive Pulmonary Disease) (ED) Discharge Disposition: HOME SELF-CARE
[2023-01-06 14:00] VITALS: BP 144/76; PULSE 79; RESP 18; TEMP 97.7
--- NOTE | 2023-01-06 15:36 | CDI ---
Documentation Clarification Form Date: 01/06/2023 From: Lynne Maynard Phone: [phone] Admit Date: 01/04/2023 02:03:00 AM Patient Name: Johny Singh Visit Number: [id number] ATTENTION: The Clinical Documentation Specialists (CDI) and [facility] Coding Staff appreciate your assistance in clarifying documentation. Please respond to the clarification below the line at the bottom and electronically sign. The CDI & [facility] Coding staff will review the response and follow-up if needed. Please note: Queries are made part of the Legal Health Record. If you have any questions, please contact the author of this message via ITS. Dr. Wilfredo Garcia Your patient has acute exacerbation of COPD and acute hypoxic respiratory failure. Based on this information and the findings below, is there an additional diagnosis that is clinically appropriate for this patient? History/Risk Factors: H/O COPD, rheumatoid arthritis Tobacco use: current smoker Home oxygen: no home O2 prior to this admission Clinical Indicators: 67yo presented with SOB, productive cough and was diagnosed with COPD exac and acute respiratory failure. During the admission, pt had a home O2 test performed on 01/06 SaO2 at rest on RA 81%, SaO2 w/ exercise on RA 76% Treatment: Pt will be discharged with home O2, case mgmt. has confirmed O2 will be delivered to pt house Is there an additional diagnosis that is clinically appropriate for this patient? [ x ] Acute Hypoxic Respiratory Failure (pO2 <60 mm Hg or SpO2 <91% on room air) only [ ] Acute on Chronic Hypoxic Respiratory Failure [ ] Other Diagnosis, please specify [ ] Unable to determine (Template Last Revised: September 2020) MTDD
[2023-01-07] MEDS ORDERED: predniSONE 20 MG TAB PO SCH (09:00)
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
== END 2023-01-06 16:29 | disposition home or self-care (01) | DRG 190 ==
LOC: EC 21:09 → 4SSUR 01-04 02:03
PROVIDERS: ADMIT Hospitalist; ATTEND Hospitalist
DX: J44.1 Chronic obstructive pulmonary disease with (acute) exacerbation (principal); J96.01 Acute respiratory failure with hypoxia; Z68.41 Body mass index [BMI] 40.0-44.9, adult; M05.10 Rheumatoid lung disease with rheumatoid arthritis of unspecified site; J70.5 Respiratory conditions due to smoke inhalation; J84.10 Pulmonary fibrosis, unspecified; I11.9 Hypertensive heart disease without heart failure; E11.9 Type 2 diabetes mellitus without complications; D75.1 Secondary polycythemia; E03.9 Hypothyroidism, unspecified; E66.9 Obesity, unspecified; F17.210 Nicotine dependence, cigarettes, uncomplicated; E78.5 Hyperlipidemia, unspecified; M19.90 Unspecified osteoarthritis, unspecified site; M79.7 Fibromyalgia; T59.811A Toxic effect of smoke, accidental (unintentional), initial encounter; X01.1XXA Exposure to smoke in uncontrolled fire, not in building or structure, initial encounter; Z20.822 Contact with and (suspected) exposure to COVID-19; Z71.6 Tobacco abuse counseling; Z88.0 Allergy status to penicillin; Z88.5 Allergy status to narcotic agent; Z79.899 Other long term (current) drug therapy; Z79.84 Long term (current) use of oral hypoglycemic drugs; Z79.51 Long term (current) use of inhaled steroids; Z79.82 Long term (current) use of aspirin; Z82.5 Family history of asthma and other chronic lower respiratory diseases
CPT/HCPCS: 36415; 71046; 80053; 83036; 83605; 83880; 84145; 84484; 85025; 85610; 85730; 87635; 93005; 94640; 94760; 96374; 99285

== ENCOUNTER 2023-07-23 20:31 | Emergency (ER) | payer MEDICARE ==
[2023-07-23 21:38] VITALS: TEMP 98.9
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
[2023-07-23 22:16] LABS: Basophils # (A) 0.1 k/uL (0-0.2); Basophils % (A) 1 %; Eosinophils # (A) 0.4 k/uL (0-0.7); Eosinophils % (A) 3 %; HCT 53.1 % (34.0-46.0); HGB 16.9 gm/dL (11.4-16.0); Hypochromasia Slight; Lymphocytes # (A) 2.3 k/uL (1.0-4.8); Lymphocytes % (A) 18 %; MCH 29.9 pg (25.0-35.0); MCHC 31.8 g/dL (31.0-37.0); Mean Platelet Volume 7.9; Monocytes # (A) 0.8 k/uL (0-1.0); Monocytes % (A) 6 %; Neutrophils # (A) 8.8 k/uL (1.3-7.7); Neutrophils % (A) 68 %; Platelet Count 213 k/uL (150-450); RBC 5.65 m/uL (3.80-5.40); RDW 13.9 % (11.5-15.5); WBC 12.8 k/uL (3.8-10.6)
[2023-07-23 22:30] LABS: Prothrombin Time 10.8 sec (10.0-12.5)
[2023-07-23 22:31] LABS: African American GFR (CKD) 78 (>60 ml/min/1.73 sqM); Anion Gap 6 mmol/L; Blood Urea Nitrogen 29 mg/dL (7-17); Calcium 9.8 mg/dL (8.4-10.2); Carbon Dioxide 34 mmol/L (22-30); Chloride 101 mmol/L (98-107); Glucose 137 mg/dL (74-99); Non-African American GFR(CKD) 68 (>60 ml/min/1.73 sqM); Potassium 4.3 mmol/L (3.5-5.1); Sodium 141 mmol/L (137-145)
[2023-07-24 00:37] VITALS: BP 152/84; PULSE 89; RESP 18
== END 2023-07-24 00:31 | disposition home or self-care (01) ==
LOC: EC 20:31
DX: R04.0 Epistaxis (principal); J44.9 Chronic obstructive pulmonary disease, unspecified; F17.200 Nicotine dependence, unspecified, uncomplicated; F12.90 Cannabis use, unspecified, uncomplicated; Z79.82 Long term (current) use of aspirin; Z79.51 Long term (current) use of inhaled steroids; Z88.0 Allergy status to penicillin; Z88.5 Allergy status to narcotic agent
CPT/HCPCS: 30901; 36415; 80048; 85025; 85610; 85730; 86850; 86900; 86901; 99283

== ENCOUNTER 2023-08-03 18:44 | Emergency (ER) | payer MEDICARE ==
[2023-08-03 19:01] VITALS: RESP 20; TEMP 98
[2023-08-03] MEDS: OXYMETAZOLINE 0.05% NASL SPRAY 1 SPRAY BOTTLE NASAL STA (19:24)
[2023-08-03] MEDS: LORazepam 1 MG TAB PO STA (20:15)
[2023-08-03] MEDS: LIDOCAINE/EPINEPHR/TETRACAINE 5 ML BOTTLE TOPICAL ONE (20:47)
--- NOTE | 2023-08-03 21:42 | ED ---
ENT HPI - General Chief complaint: ENT Stated complaint: bloody nose Time Seen by Provider: 08/03/23 19:01 Source: patient Mode of arrival: ambulatory Limitations: no limitations - History of Present Illness Initial comments: 67-year-old female presenting with chief complaint of nosebleed. Patient was seen here recently for the same complaint, Merocel was placed and she followed up in the office with Dr. Moreno who removed the packing without complication. She states that this evening about 2 hours prior to arrival she had recurrence of bleeding that she could not stop on her own at home. She does not take any anticoagulants. She takes a baby aspirin daily. No injury or trauma. No lightheadedness. - Related Data Home Medications Medication Instructions Recorded Confirmed Aspirin EC [Ecotrin Low Dose] 81 mg PO Q48H 01/03/23 01/03/23 Etanercept [Enbrel Sureclick] 50 mg SQ MO 01/03/23 01/03/23 Fluticasone/Umeclidin/Vilanter 1 puff INHALATION RT-DAILY 01/03/23 01/03/23 [Trelegy Ellipta 200-62.5-25] HYDROcodone/APAP 10-325MG [[place] 1 tab PO Q6H PRN 01/03/23 01/03/23 10-325] Ibuprofen [Motrin] 800 mg PO BID PRN 01/03/23 01/03/23 Metoprolol Succinate (ER) [Toprol 100 mg PO DAILY 01/03/23 01/03/23 XL] Potassium Chloride ER [K-Dur 20] 20 meq PO PC-SUPPER 01/03/23 01/03/23 Rosuvastatin [Crestor] 20 mg PO DAILY 01/03/23 01/03/23 hydroCHLOROthiazide [Hydrodiuril] 25 mg PO DAILY 01/03/23 01/03/23 metFORMIN HCL ER [Glucophage XR] 500 mg PO PC-SUPPER 01/03/23 01/03/23 Previous Rx's Medication Instructions Recorded Albuterol Inhaler [Ventolin Hfa 2 puff INHALATION Q4HR PRN #8 gm 01/04/23 Inhaler] predniSONE 60 mg PO DAILY #30 tab 01/04/23 Ipratropium-Albuterol Nebulize 3 ml INHALATION RT-QID PRN 30 Days 01/06/23 [Duoneb 0.5 mg-3 mg/3 ml Soln] #60 each Nicotine 14Mg/24Hr Patch [Habitrol] 1 patch TRANSDERM DAILY #7 patch 01/06/23 Clindamycin [Cleocin] 300 mg PO Q8H #15 cap 07/24/23 clindamycin HCL [Cleocin] 150 mg PO Q8H #15 cap 08/03/23 Allergies Allergy/AdvReac Type Severity Reaction Status Date / Time Penicillins Allergy Anaphylaxis Verified 07/23/23 21:18 codeine AdvReac Nausea & Verified 07/23/23 21:18 Vomiting Review of Systems ROS Statement: Those systems with pertinent positive or pertinent negative responses have been documented in the HPI. ROS Other: All systems not noted in ROS Statement are negative. Past Medical History Past Medical History: COPD, Fibromyalgia, Rheumatoid Arthritis (RA) Additional Past Medical History / Comment(s): septic after hysterectomy, broken blood vessel in nose, torn retina in right eye History of Any Multi-Drug Resistant Organisms: None Reported Past Surgical History: Section, Cholecystectomy, Hysterectomy Additional Past Surgical History / Comment(s): partial hysterectomy, unsure if appendix was removed with gallbladder, cataract w/ lens implants bilat eyes Past Anesthesia/Blood Transfusion Reactions: Previous Problems w/ Anesthesia, Family History of Problems w/ Anesthesia Additional Past Anesthesia/Blood Transfusion Reaction / Comment(s): pt and family wakes up during sx, anethesia not as effective as it should be Past Psychological History: No Psychological Hx Reported Smoking Status: Current every day smoker Past Alcohol Use History: None Reported Past Drug Use History: Marijuana - Past Family History Father Family Medical History: Diabetes Mellitus, Myocardial Infarction ([place]) Mother Family Medical History: COPD, Diabetes Mellitus Sister(s) Family Medical History: Cancer Additional Family Medical History / Comment(s): sister had brain cancer Brother(s) Family Medical History: Cancer Additional Family Medical History / Comment(s): 2 brothers had kidney cancer General Exam Limitations: no limitations General appearance: alert, in no apparent distress Head exam: Present: atraumatic, normocephalic Eye exam: Present: normal appearance, EOMI ENT exam: Present: other (Bleeding from the left nostril) Neck exam: Present: normal inspection Respiratory exam: Absent: respiratory distress Cardiovascular Exam: Present: regular rate Neurological exam: Present: alert, oriented X3 Psychiatric exam: Present: normal affect, normal mood Skin exam: Present: warm, dry Course Vital Signs 08/03/23 08/03/23 08/03/23 18:54 20:32 23:36 Temperature 98 F Pulse Rate 85 88 95 Respiratory 20 20 20 Rate Blood Pressure 150/113 155/87 146/88 O2 Sat by Pulse 91 L 95 95 Oximetry Medical Decision Making - Medical Decision Making Was pt. sent in by a medical professional or institution (JOSE Singh, DEVELOPMENT TECHNICIAN, urgent care, hospital, or fdc...) When possible be specific @ -No Did you speak to anyone other than the patient for history (EMS, parent, family, police, friend...)? What history was obtained from this source @ -No Did you review nursing and triage notes (agree or disagree)? Why? @ -I reviewed and agree with nursing and triage notes Were old charts reviewed (outside hosp., previous admission, EMS record, old EKG, old radiological studies, urgent care reports/EKG's, fdc records)? Report findings @ -Recent ER visit is reviewed Differential Diagnosis (chest pain, altered mental status, abdominal pain women, abdominal pain men, vaginal bleeding, weakness, fever, dyspnea, syncope, headache, dizziness, GI bleed, back pain, seizure, CVA, palpatations, mental health, musculoskeletal)? @ -Differential includes trauma, structural abnormality, coagulopathy, this is not an all-inclusive list EKG interpreted by me (3pts min.). @ -As above X-rays interpreted by me (1pt min.). @ -None done CT interpreted by me (1pt min.). @ -None done U/S interpreted by me (1pt. min.). @ -None done What testing was considered but not performed or refused? (CT, X-rays, U/S, labs)? Why? @ -Labs considered, however patient had labs done recently What meds were considered but not given or refused? Why? @ -None Did you discuss the management of the patient with other professionals (professionals i.e. JOSE Singh, DEVELOPMENT TECHNICIAN, lab, RT, psych nurse, social service agency director, carboy filler, teacher, police liaison officer, case management manager)? Give summary @ -No Was smoking cessation discussed for >3mins.? @ -No Was critical care preformed (if so, how long)? @ -No Were there social determinants of health that impacted care today? How? (Homelessness, low income, unemployed, alcoholism, drug addiction, transportation, low edu. Level, literacy, decrease access to med. care, half-way, rehab)? @ -No Was there de-escalation of care discussed even if they declined (Discuss DNR or withdrawal of care, Hospice)? DNR status @ -No What co-morbidities impacted this encounter? (DM, HTN, Smoking, COPD, CAD, Cancer, CVA, ARF, Chemo, Hep., AIDS, mental health diagnosis, sleep apnea, morbid obesity)? @ -None Was patient admitted / discharged? Hospital course, mention meds given and route, prescriptions, significant lab abnormalities, going to OR and other pertinent info. @ -67-year-old female presenting with chief complaint of nosebleed. On physical exam there is bleeding from the left nostril. Attempted to resolve bleeding with Afrin nasal spray and clamp, however this was unsuccessful. Attempted to place Rhino Rocket, unsuccessful. Merocel was placed without difficulty. Patient had continued overflow bleeding to the right nostril. Attempted to stop the bleeding by using let solution and topical TXA. Bleeding persist. Second Merocel was placed in the right nostril without difficulty. Patient is started on clindamycin due to penicillin allergy. Instructed to follow-up with her ENT in 2 to 3 days for removal. Follow-up with PCP. Report back to ER with any new or worsening symptoms. Discussed return parameters and answered all questions. Patient conveyed verbal understanding and agreed to the plan. I discussed this case in detail with my attending Dr. Andres Undiagnosed new problem with uncertain prognosis? @ -No Drug Therapy requiring intensive monitoring for toxicity (Heparin, Nitro, Insulin, Cardizem)? @ -No Were any procedures done? @ -No Diagnosis/symptom? @ -Epistaxis Acute, or Chronic, or Acute on Chronic? @ -Acute Uncomplicated (without systemic symptoms) or Complicated (systemic symptoms)? @ -Uncomplicated Side effects of treatment? @ -No Exacerbation, Progression, or Severe Exacerbation? @ -No Poses a threat to life or bodily function? How? (Chest pain, USA, [place], pneumonia, PE, COPD, DKA, ARF, appy, cholecystitis, CVA, Diverticulitis, Homicidal, Suicidal, threat to staff... and all critical care pts) @ -No Disposition Clinical Impression: Epistaxis Disposition: HOME SELF-CARE Condition: Good Instructions (If sedation given, give patient instructions): Nosebleed (ED) Additional Instructions: Follow-up with ENT. Report back to ER with any new or worsening symptoms. Prescriptions: clindamycin HCL [Cleocin] 150 mg PO Q8H #15 cap Is patient prescribed a controlled substance at d/c from ED?: No Referrals: Dioni Monroy DO [Primary Care Provider] - 1-2 days Umang Moreno MD [STAFF PHYSICIAN] - 1-2 days Time of Disposition: 23:05
[2023-08-03] MEDS: TRANEXAMIC ACID 1,000 MG/10 ML VIAL MISCELLANE ONE (22:09)
[2023-08-03 23:41] VITALS: BP 146/88; PULSE 95
== END 2023-08-03 23:36 | disposition home or self-care (01) ==
LOC: EC 18:44
DX: R04.0 Epistaxis (principal); J44.9 Chronic obstructive pulmonary disease, unspecified; F17.200 Nicotine dependence, unspecified, uncomplicated; F12.90 Cannabis use, unspecified, uncomplicated; Z79.51 Long term (current) use of inhaled steroids; Z79.82 Long term (current) use of aspirin
CPT/HCPCS: 30901; 99283

== ENCOUNTER 2023-08-05 06:52 | Emergency (ER) | payer MEDICARE ==
[2023-08-05 07:11] VITALS: BP 108/70; PULSE 96; RESP 20; TEMP 98
--- NOTE | 2023-08-05 07:32 | ED ---
General Adult HPI - General Chief complaint: ENT Stated complaint: nose bleed Time Seen by Provider: 08/05/23 07:04 Source: patient, RN notes reviewed Mode of arrival: ambulatory Limitations: no limitations - History of Present Illness Initial comments: Patient 67-year-old female presented to the emergency room today with a chief complaint of epistaxis. Patient does admit that this nosebleed began approximately 9 days ago. States she was seen here in the emergency room had packing placed and follow-up with ENT 4 days later. Packing was removed. Did not see any abnormality. States that less than 2 days later bleeding returned. States that he came back to the emergency room had packing replaced again just 2 days ago. States she still noticed a small amount of blood that she feels like going down the back of her throat. She denies any other complaints or any other symptoms at this time. Patient denies any recent fever, chills, shortness of breath, chest pain, abdominal pain, nausea or vomiting, headaches or visual changes, or any other complaints. - Related Data Home Medications Medication Instructions Recorded Confirmed Aspirin EC [Ecotrin Low Dose] 81 mg PO Q48H 01/03/23 01/03/23 Etanercept [Enbrel Sureclick] 50 mg SQ MO 01/03/23 01/03/23 Fluticasone/Umeclidin/Vilanter 1 puff INHALATION RT-DAILY 01/03/23 01/03/23 [Trelegy Ellipta 200-62.5-25] HYDROcodone/APAP 10-325MG [[place] 1 tab PO Q6H PRN 01/03/23 01/03/23 10-325] Ibuprofen [Motrin] 800 mg PO BID PRN 01/03/23 01/03/23 Metoprolol Succinate (ER) [Toprol 100 mg PO DAILY 01/03/23 01/03/23 XL] Potassium Chloride ER [K-Dur 20] 20 meq PO PC-SUPPER 01/03/23 01/03/23 Rosuvastatin [Crestor] 20 mg PO DAILY 01/03/23 01/03/23 hydroCHLOROthiazide [Hydrodiuril] 25 mg PO DAILY 01/03/23 01/03/23 metFORMIN HCL ER [Glucophage XR] 500 mg PO PC-SUPPER 01/03/23 01/03/23 Previous Rx's Medication Instructions Recorded Albuterol Inhaler [Ventolin Hfa 2 puff INHALATION Q4HR PRN #8 gm 01/04/23 Inhaler] predniSONE 60 mg PO DAILY #30 tab 01/04/23 Ipratropium-Albuterol Nebulize 3 ml INHALATION RT-QID PRN 30 Days 01/06/23 [Duoneb 0.5 mg-3 mg/3 ml Soln] #60 each Nicotine 14Mg/24Hr Patch [Habitrol] 1 patch TRANSDERM DAILY #7 patch 01/06/23 Clindamycin [Cleocin] 300 mg PO Q8H #15 cap 07/24/23 clindamycin HCL [Cleocin] 150 mg PO Q8H #15 cap 08/03/23 Allergies Allergy/AdvReac Type Severity Reaction Status Date / Time Penicillins Allergy Anaphylaxis Verified 08/05/23 06:58 codeine AdvReac Nausea & Verified 08/05/23 06:58 Vomiting Review of Systems ROS Statement: Those systems with pertinent positive or pertinent negative responses have been documented in the HPI. ROS Other: All systems not noted in ROS Statement are negative. Past Medical History Past Medical History: COPD, Fibromyalgia, Rheumatoid Arthritis (RA) Additional Past Medical History / Comment(s): septic after hysterectomy, broken blood vessel in nose, torn retina in right eye History of Any Multi-Drug Resistant Organisms: None Reported Past Surgical History: Section, Cholecystectomy, Hysterectomy Additional Past Surgical History / Comment(s): partial hysterectomy, unsure if appendix was removed with gallbladder, cataract w/ lens implants bilat eyes Past Anesthesia/Blood Transfusion Reactions: Previous Problems w/ Anesthesia, Family History of Problems w/ Anesthesia Additional Past Anesthesia/Blood Transfusion Reaction / Comment(s): pt and family wakes up during sx, anethesia not as effective as it should be Past Psychological History: No Psychological Hx Reported Smoking Status: Current every day smoker Past Alcohol Use History: None Reported Past Drug Use History: Marijuana - Past Family History Father Family Medical History: Diabetes Mellitus, Myocardial Infarction ([place]) Mother Family Medical History: COPD, Diabetes Mellitus Sister(s) Family Medical History: Cancer Additional Family Medical History / Comment(s): sister had brain cancer Brother(s) Family Medical History: Cancer Additional Family Medical History / Comment(s): 2 brothers had kidney cancer General Exam - General Exam Comments Initial Comments: General: The patient is awake and alert, in no distress, and does not appear acutely ill. Eye: Extra-ocular movements are intact. There is normal conjunctiva bilaterally. No signs of icterus. Ears, nose, mouth and throat: There are moist mucous membranes and no oral lesions. No blood in the posterior pharynx visualized. Patient does have bilateral nasal Merocell packing. No blood coming anteriorly. Respiratory: respirations are non-labored Musculoskeletal: Normal ROM, no tenderness. Neurological: A&O x 3. CN II-XII intact, There are no obvious motor or sensory deficits. Coordination appears grossly intact. Speech is normal. Skin: Skin is warm and dry and no rashes or lesions are noted. Psychiatric: Cooperative, appropriate mood & affect, normal judgment. Limitations: no limitations Course Vital Signs 08/05/23 06:55 Temperature 98 F Pulse Rate 96 Respiratory 20 Rate Blood Pressure 108/70 O2 Sat by Pulse 93 L Oximetry Medical Decision Making - Medical Decision Making History was obtained from patient/Nurse/Family/ Initial assessment and chief complaint: Epistaxis Chronic conditions affecting care: COPD, fibromyalgia Social determinants affecting care: None Patient 67-year-old female presented to the emergency room today with a chief complaint of epistaxis. Patient does admit that she had epistaxis that started 9 days ago. Has seen ENT. States initial packing was removed and they did not see any problems. States bleeding reoccurred so she came back to the emergency room and had packing replaced. Patient states that this packing was placed just 2 days ago. Currently taking antibiotic as she has bilateral packing. Patient states that she is felt like there is still some bleeding going down the back of her throat. Patient denies any other complaints. Patient's posterior pharynx is clear. Vitals have been stable here in the emergency room. Options were discussed with patient about removal of nasal packing to try to visualize possible bleed. Patient has currently declined removal of packing she is concerned that we will have to just repack the nose. She does have an appointment with her ENT tomorrow. Patient feels comfortable being discharged to follow-up with ENT. Advised return if any symptoms increase or worsen or for any other concerns. She states understanding and is agreement with this plan. Disposition Clinical Impression: Epistaxis Disposition: HOME SELF-CARE Condition: Good Instructions (If sedation given, give patient instructions): Nosebleed (ED) Additional Instructions: Please follow with ENT tomorrow with your scheduled appointment. Return to the emergency room for any other concerns. Is patient prescribed a controlled substance at d/c from ED?: No Referrals: Dioni Monroy DO [Primary Care Provider] - 1-2 days Umang Moreno MD [STAFF PHYSICIAN] - 1-2 days Time of Disposition: 07:31
== END 2023-08-05 07:45 | disposition home or self-care (01) ==
LOC: EC 06:52
DX: R04.0 Epistaxis (principal); J44.9 Chronic obstructive pulmonary disease, unspecified; F17.200 Nicotine dependence, unspecified, uncomplicated; F12.90 Cannabis use, unspecified, uncomplicated; Z79.51 Long term (current) use of inhaled steroids; Z88.0 Allergy status to penicillin; Z88.5 Allergy status to narcotic agent; Z79.82 Long term (current) use of aspirin
CPT/HCPCS: 99283

== ENCOUNTER 2023-08-06 20:16 | Emergency (ER) | payer MEDICARE ==
--- NOTE | 2023-08-06 20:33 | ED ---
ENT HPI - General Source: patient Mode of arrival: ambulatory Limitations: no limitations <Obdulia Smalls - Last Filed: 08/06/23 20:33> <Lalita Juan - Last Filed: 08/07/23 00:03> - General Chief complaint: ENT Stated complaint: Nose bleed Time Seen by Provider: 08/06/23 20:32 - History of Present Illness Initial comments: 67-year-old female presenting with chief complaint of nosebleed. History of recurrent nosebleeds, was seen at ENT today and had packing removed and cautery performed. Bleeding resumed tonight. (Obdulia Smalls) Patient is a 61-year-old female presented to the ER with chief complaint of epistaxis. Patient states this has been an ongoing process for the past couple of weeks. Patient was seen by ENT today and had packing removed. She also had a vessel cauterized on the left side. Patient states around 7 PM tonight while she was getting into the bath her left nostril started to bleed again. Patient reports that she tried pressure but was unsuccessful which brought her to the ER. Patient states there is blood running down the back of her throat and blood does come out of her right nostril but the bleeding is from the left. Patient denies any shortness of breath, chest pain, dizziness, lightheadedness. Denies any blood thinner use. (Lalita Juan) - Related Data Home Medications Medication Instructions Recorded Confirmed Aspirin EC [Ecotrin Low Dose] 81 mg PO Q48H 01/03/23 01/03/23 Etanercept [Enbrel Sureclick] 50 mg SQ MO 01/03/23 01/03/23 Fluticasone/Umeclidin/Vilanter 1 puff INHALATION RT-DAILY 01/03/23 01/03/23 [Trelegy Ellipta 200-62.5-25] HYDROcodone/APAP 10-325MG [[place] 1 tab PO Q6H PRN 01/03/23 01/03/23 10-325] Ibuprofen [Motrin] 800 mg PO BID PRN 01/03/23 01/03/23 Metoprolol Succinate (ER) [Toprol 100 mg PO DAILY 01/03/23 01/03/23 XL] Potassium Chloride ER [K-Dur 20] 20 meq PO PC-SUPPER 01/03/23 01/03/23 Rosuvastatin [Crestor] 20 mg PO DAILY 01/03/23 01/03/23 hydroCHLOROthiazide [Hydrodiuril] 25 mg PO DAILY 01/03/23 01/03/23 metFORMIN HCL ER [Glucophage XR] 500 mg PO PC-SUPPER 01/03/23 01/03/23 Previous Rx's Medication Instructions Recorded Albuterol Inhaler [Ventolin Hfa 2 puff INHALATION Q4HR PRN #8 gm 01/04/23 Inhaler] predniSONE 60 mg PO DAILY #30 tab 01/04/23 Ipratropium-Albuterol Nebulize 3 ml INHALATION RT-QID PRN 30 Days 01/06/23 [Duoneb 0.5 mg-3 mg/3 ml Soln] #60 each Nicotine 14Mg/24Hr Patch [Habitrol] 1 patch TRANSDERM DAILY #7 patch 01/06/23 Clindamycin [Cleocin] 300 mg PO Q8H #15 cap 07/24/23 clindamycin HCL [Cleocin] 150 mg PO Q8H #15 cap 08/03/23 Allergies Allergy/AdvReac Type Severity Reaction Status Date / Time Penicillins Allergy Anaphylaxis Verified 08/05/23 06:58 codeine AdvReac Nausea & Verified 08/05/23 06:58 Vomiting Review of Systems ROS Other: All systems not noted in ROS Statement are negative. <Obdulia Smalls - Last Filed: 08/06/23 20:33> ROS Other: All systems not noted in ROS Statement are negative. <Lalita Juan - Last Filed: 08/07/23 00:03> ROS Statement: Those systems with pertinent positive or pertinent negative responses have been documented in the HPI. Past Medical History Past Medical History: COPD, Fibromyalgia, Rheumatoid Arthritis (RA) Additional Past Medical History / Comment(s): septic after hysterectomy, broken blood vessel in nose, torn retina in right eye History of Any Multi-Drug Resistant Organisms: None Reported Past Surgical History: Section, Cholecystectomy, Hysterectomy Additional Past Surgical History / Comment(s): partial hysterectomy, unsure if appendix was removed with gallbladder, cataract w/ lens implants bilat eyes Past Anesthesia/Blood Transfusion Reactions: Previous Problems w/ Anesthesia, Family History of Problems w/ Anesthesia Additional Past Anesthesia/Blood Transfusion Reaction / Comment(s): pt and family wakes up during sx, anethesia not as effective as it should be Past Psychological History: No Psychological Hx Reported Smoking Status: Current every day smoker Past Alcohol Use History: None Reported Past Drug Use History: Marijuana - Past Family History Father Family Medical History: Diabetes Mellitus, Myocardial Infarction ([place]) Mother Family Medical History: COPD, Diabetes Mellitus Sister(s) Family Medical History: Cancer Additional Family Medical History / Comment(s): sister had brain cancer Brother(s) Family Medical History: Cancer Additional Family Medical History / Comment(s): 2 brothers had kidney cancer <Obdulia Smalls - Last Filed: 08/06/23 20:33> General Exam Limitations: no limitations <Obdulia Smalls - Last Filed: 08/06/23 20:33> General appearance: alert, in no apparent distress Head exam: Present: atraumatic, normocephalic, normal inspection Eye exam: Present: normal appearance, PERRL, EOMI. Absent: scleral icterus, conjunctival injection, periorbital swelling ENT exam: Present: normal exam, normal oropharynx (Blood in posterior pharynx), mucous membranes moist, other (Active bleeding from left nostril) Respiratory exam: Present: normal lung sounds bilaterally. Absent: respiratory distress, wheezes, rales, rhonchi, stridor Cardiovascular Exam: Present: regular rate, normal rhythm, normal heart sounds. Absent: systolic murmur, diastolic murmur, rubs, gallop, clicks Neurological exam: Present: alert, oriented X3, CN II-XII intact Psychiatric exam: Present: normal affect, normal mood Skin exam: Present: warm, dry, intact, normal color. Absent: rash <Lalita Juan - Last Filed: 08/07/23 00:03> Course <Lalita Juan - Last Filed: 08/07/23 00:03> Vital Signs 08/06/23 08/06/23 20:29 23:56 Temperature 98.0 F Pulse Rate 87 93 Respiratory 18 Rate Blood Pressure 122/61 114/74 O2 Sat by Pulse 94 L 92 L Oximetry - Reevaluation(s) Reevaluation #1: 08/06/23 23:[address] Plata from [facility] excepted transfer. (Lalita Juan) Reevaluation #2: 08/06/23 22:[address] Moreno, ENT, who advised patient be transferred for further care. (Lalita Juan) Medical Decision Making <Lalita Juan - Last Filed: 08/07/23 00:03> - Medical Decision Making Was pt. sent in by a medical professional or institution (, JOSE, R&D LAB TECHNICIAN, urgent care, hospital, or [place] health care facility...) When possible be specific @ -No Did you speak to anyone other than the patient for history (EMS, parent, family, police, friend...)? What history was obtained from this source @ -No Did you review nursing and triage notes (agree or disagree)? Why? @ -I reviewed and agree with nursing and triage notes Were old charts reviewed (outside hosp., previous admission, EMS record, old EKG, old radiological studies, urgent care reports/EKG's, [place] health care facility records)? Report findings @ -Yes I reviewed old charts from 08-05-2023 patient presented to the ER with epistaxis. Packing was in place. Patient refused packing to be removed for further evaluation. Patient discharged. Differential Diagnosis (chest pain, altered mental status, abdominal pain women, abdominal pain men, vaginal bleeding, weakness, fever, dyspnea, syncope, headache, dizziness, GI bleed, back pain, seizure, CVA, palpatations, mental health, musculoskeletal)? @ -Epistaxis, laceration, nasal foreign body, septal hematoma this list is not meant to be all-inclusive. EKG interpreted by me (3pts min.). @ -None X-rays interpreted by me (1pt min.). @ -None done CT interpreted by me (1pt min.). @ -None done U/S interpreted by me (1pt. min.). @ -None done What testing was considered but not performed or refused? (CT, X-rays, U/S, labs)? Why? @ -None What meds were considered but not given or refused? Why? @ -None Did you discuss the management of the patient with other professionals (professionals i.e. , JOSE, R&D LAB TECHNICIAN, lab, RT, psych nurse, social media specialist, hearing therapy teacher, teacher, associate loan officer, oil field caser)? Give summary @ -Yes I discussed this case with Dr. Christiansen, ENT, who advised transfer for further care. I also spoke with Dr. Plata, ER attending, from [facility] who accepted transfer. Was smoking cessation discussed for >3mins.? @ -No Was critical care preformed (if so, how long)? @ -No Were there social determinants of health that impacted care today? How? (Homelessness, low income, unemployed, alcoholism, drug addiction, transportation, low edu. Level, literacy, decrease access to med. care, longterm, rehab)? @ -No Was there de-escalation of care discussed even if they declined (Discuss DNR or withdrawal of care, Hospice)? DNR status @ -No What co-morbidities impacted this encounter? (DM, HTN, Smoking, COPD, CAD, Cancer, CVA, ARF, Chemo, Hep., AIDS, mental health diagnosis, sleep apnea, morbid obesity)? @ -None Was patient admitted / discharged? Hospital course, mention meds given and route, prescriptions, significant lab abnormalities, going to OR and other pertinent info. @ -Transferred. Patient is a 67-year-old female presented to ER with chief complaint of epistaxis. Patient has recurrent nosebleeds for the past 2 weeks. She has been seen in this ER multiple times and had packing placed. Patient had packing removed by ENT Dr. Moreno today. Patient also with underwent cauterization of left nostril today. Patient reports bleeding restarted around 7 PM and has not stopped since. Patient is not on any anticoagulation medication. No signs of acute distress. Vital stable. History and physical exam were completed. Active bleeding from left nostril and blood in posterior pharynx. TXA covered merocel was placed and unsuccessful. I spoke with Dr. Moreno who advised transfer for further care as he believes this is a posterior nosebleed. I also spoke with Dr. Gamez, ER attending for [facility], who accepted transfer. Patient in agreement for transfer. Patient refused EMS transfer and will transport herself via private vehicle. Patient be transferred in stable condition for further care and treatment. Undiagnosed new problem with uncertain prognosis? @ -No Drug Therapy requiring intensive monitoring for toxicity (Heparin, Nitro, Insulin, Cardizem)? @ -No Were any procedures done? @ -No Diagnosis/symptom? @ -Epistaxis Acute, or Chronic, or Acute on Chronic? @ -Acute Uncomplicated (without systemic symptoms) or Complicated (systemic symptoms)? @ -Uncomplicated Side effects of treatment? @ -No Exacerbation, Progression, or Severe Exacerbation? @ -No Poses a threat to life or bodily function? How? (Chest pain, [place], [place], pneumonia, PE, COPD, DKA, ARF, appy, cholecystitis, CVA, Diverticulitis, Homicidal, Suicidal, threat to staff... and all critical care pts) @ -No (Lalita Juan) Disposition <Obdulia Smalls - Last Filed: 08/06/23 20:33> Time of Disposition: 00:00 - Out of Hospital Transfer - Req. Specs Out of Hospital Transfer - Requested Specifics: Other Emergency Center ([facility]) <Lalita Juan - Last Filed: 08/07/23 00:03> Clinical Impression: Epistaxis Disposition: OTHER INSTITUTION NOT DEFINED Condition: Stable Referrals: Dioni Monroy DO [Primary Care Provider] - 1-2 days
[2023-08-06 20:54] VITALS: RESP 18; TEMP 98
[2023-08-06] MEDS ORDERED: TRANEXAMIC ACID 1,000 MG/10 ML VIAL IRRIGATION ONE (20:57)
[2023-08-07 00:37] VITALS: BP 114/74; PULSE 93
== END 2023-08-07 00:13 | disposition other institution (70) ==
LOC: EC 20:16
DX: R04.0 Epistaxis (principal); J44.9 Chronic obstructive pulmonary disease, unspecified; F17.200 Nicotine dependence, unspecified, uncomplicated; F12.90 Cannabis use, unspecified, uncomplicated; Z79.51 Long term (current) use of inhaled steroids; Z88.0 Allergy status to penicillin; Z88.5 Allergy status to narcotic agent; Z79.82 Long term (current) use of aspirin
CPT/HCPCS: 99284

== ENCOUNTER 2023-08-27 20:06 | Emergency (ER) | payer MEDICARE ==
[2023-08-27 20:25] VITALS: TEMP 98.8
--- NOTE | 2023-08-27 21:42 | ED ---
ENT HPI - General Chief complaint: ENT Stated complaint: Bloody Nose Time Seen by Provider: 08/27/23 21:41 Source: patient Mode of arrival: ambulatory Limitations: no limitations - History of Present Illness Initial comments: 68-year-old female presenting to the ED with a chief complaint of nosebleed. Patient reports that this is been intermittent since July and notes upcoming surgery for this. States today started while at rest. Denies any injury or trauma. Reports that she is not on any blood thinners. - Related Data Home Medications Medication Instructions Recorded Confirmed Aspirin EC [Ecotrin Low Dose] 81 mg PO Q48H 01/03/23 01/03/23 Etanercept [Enbrel Sureclick] 50 mg SQ MO 01/03/23 01/03/23 Fluticasone/Umeclidin/Vilanter 1 puff INHALATION RT-DAILY 01/03/23 01/03/23 [Trelegy Ellipta 200-62.5-25] HYDROcodone/APAP 10-325MG [[place] 1 tab PO Q6H PRN 01/03/23 01/03/23 10-325] Ibuprofen [Motrin] 800 mg PO BID PRN 01/03/23 01/03/23 Metoprolol Succinate (ER) [Toprol 100 mg PO DAILY 01/03/23 01/03/23 XL] Potassium Chloride ER [K-Dur 20] 20 meq PO PC-SUPPER 01/03/23 01/03/23 Rosuvastatin [Crestor] 20 mg PO DAILY 01/03/23 01/03/23 hydroCHLOROthiazide [Hydrodiuril] 25 mg PO DAILY 01/03/23 01/03/23 metFORMIN HCL ER [Glucophage XR] 500 mg PO PC-SUPPER 01/03/23 01/03/23 Previous Rx's Medication Instructions Recorded Albuterol Inhaler [Ventolin Hfa 2 puff INHALATION Q4HR PRN #8 gm 01/04/23 Inhaler] predniSONE 60 mg PO DAILY #30 tab 01/04/23 Ipratropium-Albuterol Nebulize 3 ml INHALATION RT-QID PRN 30 Days 01/06/23 [Duoneb 0.5 mg-3 mg/3 ml Soln] #60 each Nicotine 14Mg/24Hr Patch [Habitrol] 1 patch TRANSDERM DAILY #7 patch 01/06/23 Clindamycin [Cleocin] 300 mg PO Q8H #15 cap 07/24/23 clindamycin HCL [Cleocin] 150 mg PO Q8H #15 cap 08/03/23 Allergies Allergy/AdvReac Type Severity Reaction Status Date / Time Penicillins Allergy Anaphylaxis Verified 08/27/23 20:22 codeine AdvReac Nausea & Verified 08/27/23 20:22 Vomiting Review of Systems ROS Statement: Those systems with pertinent positive or pertinent negative responses have been documented in the HPI. ROS Other: All systems not noted in ROS Statement are negative. Past Medical History Past Medical History: COPD, Fibromyalgia, Rheumatoid Arthritis (RA) Additional Past Medical History / Comment(s): septic after hysterectomy, broken blood vessel in nose, torn retina in right eye History of Any Multi-Drug Resistant Organisms: None Reported Past Surgical History: Section, Cholecystectomy, Hysterectomy Additional Past Surgical History / Comment(s): partial hysterectomy, unsure if appendix was removed with gallbladder, cataract w/ lens implants bilat eyes Past Anesthesia/Blood Transfusion Reactions: Previous Problems w/ Anesthesia, Family History of Problems w/ Anesthesia Additional Past Anesthesia/Blood Transfusion Reaction / Comment(s): pt and family wakes up during sx, anethesia not as effective as it should be Past Psychological History: No Psychological Hx Reported Smoking Status: Former smoker Past Alcohol Use History: None Reported - Past Family History Father Family Medical History: Diabetes Mellitus, Myocardial Infarction ([place]) Mother Family Medical History: COPD, Diabetes Mellitus Sister(s) Family Medical History: Cancer Additional Family Medical History / Comment(s): sister had brain cancer Brother(s) Family Medical History: Cancer Additional Family Medical History / Comment(s): 2 brothers had kidney cancer General Exam - General Exam Comments Initial Comments: Visual Physical Exam Vital signs reviewed General: Well-appearing, nontoxic, no acute distress. Head: Normocephalic, atraumatic Eyes: PERRLA, EOMI ENT: Airway patent Chest: Nonlabored breathing Skin: No visual rash, normal skin tone Neuro: Alert and oriented 3 Musculoskeletal: No gross abnormalities Limitations: no limitations General appearance: alert, in no apparent distress Eye exam: Present: normal appearance ENT exam: Present: other (Upon removal of nose clamp anterior bleed in the left nare) Neck exam: Present: normal inspection Respiratory exam: Present: normal lung sounds bilaterally Cardiovascular Exam: Present: regular rate, normal rhythm GI/Abdominal exam: Present: soft Neurological exam: Present: alert, oriented X3 Skin exam: Present: warm, dry Course Vital Signs 08/27/23 20:19 Temperature 98.8 F Pulse Rate 86 Respiratory 20 Rate Blood Pressure 116/75 O2 Sat by Pulse 90 L Oximetry Procedures - Procedures Initial comment: 8 cm Merocel packing placed and the left nare. Patient tolerated the procedure well with no complications. Medical Decision Making - Medical Decision Making Was pt. sent in by a medical professional or institution (, PA, SUPERVISOR TOWER, urgent care, hospital, or fdc...) When possible be specific @ -No Did you speak to anyone other than the patient for history (EMS, parent, family, police, friend...)? What history was obtained from this source @ -No Did you review nursing and triage notes (agree or disagree)? Why? @ -I reviewed and agree with nursing and triage notes Were old charts reviewed (outside hosp., previous admission, EMS record, old EKG, old radiological studies, urgent care reports/EKG's, fdc records)? Report findings @ -No old charts were reviewed Differential Diagnosis (chest pain, altered mental status, abdominal pain women, abdominal pain men, vaginal bleeding, weakness, fever, dyspnea, syncope, headache, dizziness, GI bleed, back pain, seizure, CVA, palpatations, mental health, musculoskeletal)? @ -Not applicable EKG interpreted by me (3pts min.). @ -None X-rays interpreted by me (1pt min.). @ -None done CT interpreted by me (1pt min.). @ -None done U/S interpreted by me (1pt. min.). @ -None done What testing was considered but not performed or refused? (CT, X-rays, U/S, labs)? Why? @ -None What meds were considered but not given or refused? Why? @ -None Did you discuss the management of the patient with other professionals (professionals i.e. JOSE Singh, SUPERVISOR TOWER, lab, RT, psych nurse, protective services social worker, lab support service tech, teacher, chairman and chief executive officer, showcase maker)? Give summary @ -No Was smoking cessation discussed for >3mins.? @ -No Was critical care preformed (if so, how long)? @ -No Were there social determinants of health that impacted care today? How? (Homelessness, low income, unemployed, alcoholism, drug addiction, transportation, low edu. Level, literacy, decrease access to med. care, nursing home, rehab)? @ -No Was there de-escalation of care discussed even if they declined (Discuss DNR or withdrawal of care, Hospice)? DNR status @ -No What co-morbidities impacted this encounter? (DM, HTN, Smoking, COPD, CAD, Cancer, CVA, ARF, Chemo, Hep., AIDS, mental health diagnosis, sleep apnea, morbid obesity)? @ -None Was patient admitted / discharged? Hospital course, mention meds given and route, prescriptions, significant lab abnormalities, going to OR and other pertinent info. @ -Discharge 68-year-old female presenting to the ED with a chief complaint of epistaxis. Patient reports that this has been an ongoing issue and notes that she has upcoming surgery with her ENT who works out of the [facility] area. States today recurrence of epistaxis that she has been unable to control at home prompting presentation to the ED for further evaluation. Upon examination patient did have some active anterior bleeding in the left nare. Merocel pac everett was placed. Patient tolerated this procedure well with no complications. Patient continues to do well after an hour of observation and discharged home in stable condition with prescription for Augmentin. Discussed return precautions with patient who verbalized agreement. Reports that she will follow-up with her ENT. Also provided referral to see ENT here in [place]. Undiagnosed new problem with uncertain prognosis? @ -No Drug Therapy requiring intensive monitoring for toxicity (Heparin, Nitro, Insulin, Cardizem)? @ -No Were any procedures done? @ -No Diagnosis/symptom? @ -Epistaxis Acute, or Chronic, or Acute on Chronic? @ -Acute Uncomplicated (without systemic symptoms) or Complicated (systemic symptoms)? @ -Uncomplicated Side effects of treatment? @ -No Exacerbation, Progression, or Severe Exacerbation? @ -No Poses a threat to life or bodily function? How? (Chest pain, [place], [place], pneumonia, PE, COPD, DKA, ARF, appy, cholecystitis, CVA, Diverticulitis, Homicidal, Suicidal, threat to staff... and all critical care pts) @ -No Disposition Clinical Impression: Epistaxis Disposition: HOME SELF-CARE Condition: Good Instructions (If sedation given, give patient instructions): Nosebleed (ED) Additional Instructions: Please return to the Emergency Department if symptoms worsen or any other concerns. Please follow-up with ENT within 48 to 72 hours for packing removal. Is patient prescribed a controlled substance at d/c from ED?: No Referrals: Dioni Monroy DO [Primary Care Provider] - 1-2 days Umang Moreno MD [STAFF PHYSICIAN] - 1-2 days Time of Disposition: 01:20
[2023-08-28] MEDS: LORazepam 2 MG/ML INJ IM STA (00:44)
[2023-08-28] MEDS: CEPHALEXIN 500MG STARTER PACK 4 CAP BTL PO STA (02:06)
[2023-08-28 02:33] VITALS: BP 107/66; PULSE 88; RESP 16
== END 2023-08-28 02:10 | disposition home or self-care (01) ==
LOC: EC 20:06
DX: R04.0 Epistaxis (principal); J44.9 Chronic obstructive pulmonary disease, unspecified; M06.9 Rheumatoid arthritis, unspecified; M79.7 Fibromyalgia; Z79.899 Other long term (current) drug therapy; Z88.0 Allergy status to penicillin; Z88.5 Allergy status to narcotic agent; Z87.891 Personal history of nicotine dependence
CPT/HCPCS: 30903; 96372; 99283

== ENCOUNTER → 2023-11-04 | Outpatient (CLI) | payer MEDICARE ==
--- NOTE | 2023-11-04 14:17 | CTL ---
EXAMINATION TYPE: CT Low Dose Lung DATE OF EXAM: 11/04/2023 2:03 PM CLINICAL INDICATION:Female, 68 years old with history of Z12.2 LUNG CA SCREEN Z87.891 PERSONAL HX NI COTINE; smoker , history of tobacco use. COMPARISON: Chest radiographs 01/03/2023 TECHNIQUE: Multiple axial non-contrast scans were obtained from approximately the lung apices through the upper abdomen. Coronal and sagittal reformatted images were obtained. Low dose technique was uti lized. CT DLP: 144.12 mGycm, Automated exposure control for dose reduction was used. CT Contrast: Contrast used: None Oral contrast used: None FINDINGS: ======== Lack of intravenous contrast and low dose technique limits the evaluation of the vascular and soft ti ssue structures. LUNGS: No evidence of pulmonary fibrosis. No evidence of focal consolidation, pneumothorax or pleural effusion. Mild centrilobular emphysema changes. Nodules: RUL: None. RML: None. RLL: None. AMBIKA: None. LLL: None. AIRWAY: Patent and unremarkable. HEART: Size within normal limits. Coronary artery calcifications. MEDIASTINUM: No gross evidence of adenopathy. VASCULATURE: No aortic aneurysm. Dilated pulmonary trunk measuring up to 39 mm. Atherosclerosis of t he arterial vasculature. MUSCULOSKELETAL: No acute osseous abnormalities SOFT TISSUES/LYMPH NODES: Unremarkable. LOWER NECK: No significant findings. UPPER ABDOMEN: Gallbladder surgically absent.r IMPRESSION: 1. No pulmonary nodules. 2. Mild emphysema. 3. pulmonary hypertension. CT LUNG RAD AND CT CHEST RECOMMENDATION: Lung-Rad 2 Benign Appearance or Behavior: Continue annual sc reening with LDCT in 12 months. S Modifier (other clinically significant findings): None Recommend smoking cessation (if current smoker), or continuation of smoking cessation (if prior smoke r). Annual screening for lung cancer with low-dose computed tomography is recommended in adults ages 55 to 77 years who have a 30 pack-year smoking history and currently smoke or have quit within the pa st 15 years. Screening should be discontinued once a person has not smoked for 15 years or develops a health problem that substantially limits life expectancy or the ability or willingness to have curat simi lung surgery. Lung rads 2021 [email or web address]
== END | disposition home or self-care (01) ==
LOC: RADCTMAIN 12:40
PROVIDERS: ATTEND Family Medicine
DX: Z12.2 Encounter for screening for malignant neoplasm of respiratory organs (principal); I27.20 Pulmonary hypertension, unspecified; J43.2 Centrilobular emphysema; Z87.891 Personal history of nicotine dependence
CPT/HCPCS: 71271

== ENCOUNTER 2023-11-27 20:32 | Emergency (ER) | payer MEDICARE ==
[2023-11-27 21:26] VITALS: RESP 18; TEMP 98
[2023-11-27] MEDS: LORazepam 2 MG/ML INJ IM STA (22:21)
--- NOTE | 2023-11-27 22:54 | ED ---
General Adult HPI - General Chief complaint: ENT Stated complaint: Nose Bleed Time Seen by Provider: 11/27/23 21:21 Source: patient, RN notes reviewed Mode of arrival: ambulatory Limitations: no limitations - History of Present Illness Initial comments: 68-year-old female presents to the emergency department for evaluation of nosebleed. Patient states that she has recently had recurrent nosebleeds and underwent surgery back in September. She states that she was doing well following this until about a week ago. She notes that she started to have light which she was able to control at home. She states that today she was unable to take care of the nosebleed at home. Reports the bleeding is from the left nare. She is not on blood thinners. - Related Data Home Medications Medication Instructions Recorded Confirmed Aspirin EC [Ecotrin Low Dose] 81 mg PO Q48H 01/03/23 01/03/23 Etanercept [Enbrel Sureclick] 50 mg SQ MO 01/03/23 01/03/23 Fluticasone/Umeclidin/Vilanter 1 puff INHALATION RT-DAILY 01/03/23 01/03/23 [Trelegy Ellipta 200-62.5-25] HYDROcodone/APAP 10-325MG [[place] 1 tab PO Q6H PRN 01/03/23 01/03/23 10-325] Ibuprofen [Motrin] 800 mg PO BID PRN 01/03/23 01/03/23 Metoprolol Succinate (ER) [Toprol 100 mg PO DAILY 01/03/23 01/03/23 XL] Potassium Chloride ER [K-Dur 20] 20 meq PO PC-SUPPER 01/03/23 01/03/23 Rosuvastatin [Crestor] 20 mg PO DAILY 01/03/23 01/03/23 hydroCHLOROthiazide [Hydrodiuril] 25 mg PO DAILY 01/03/23 01/03/23 metFORMIN HCL ER [Glucophage XR] 500 mg PO PC-SUPPER 01/03/23 01/03/23 Previous Rx's Medication Instructions Recorded Albuterol Inhaler [Ventolin Hfa 2 puff INHALATION Q4HR PRN #8 gm 01/04/23 Inhaler] predniSONE 60 mg PO DAILY #30 tab 01/04/23 Ipratropium-Albuterol Nebulize 3 ml INHALATION RT-QID PRN 30 Days 01/06/23 [Duoneb 0.5 mg-3 mg/3 ml Soln] #60 each Nicotine 14Mg/24Hr Patch [Habitrol] 1 patch TRANSDERM DAILY #7 patch 01/06/23 Clindamycin [Cleocin] 300 mg PO Q8H #15 cap 07/24/23 clindamycin HCL [Cleocin] 150 mg PO Q8H #15 cap 08/03/23 Cephalexin [Keflex] 500 mg PO Q6HR 5 Days #20 cap 08/28/23 Allergies Allergy/AdvReac Type Severity Reaction Status Date / Time Penicillins Allergy Anaphylaxis Verified 11/27/23 20:39 codeine AdvReac Nausea & Verified 11/27/23 20:39 Vomiting Review of Systems ROS Statement: Those systems with pertinent positive or pertinent negative responses have been documented in the HPI. ROS Other: All systems not noted in ROS Statement are negative. Past Medical History Past Medical History: COPD, Fibromyalgia, Rheumatoid Arthritis (RA) Additional Past Medical History / Comment(s): septic after hysterectomy, broken blood vessel in nose, torn retina in right eye History of Any Multi-Drug Resistant Organisms: None Reported Past Surgical History: Section, Cholecystectomy, Hysterectomy Additional Past Surgical History / Comment(s): partial hysterectomy, unsure if appendix was removed with gallbladder, cataract w/ lens implants bilat eyes Past Anesthesia/Blood Transfusion Reactions: Previous Problems w/ Anesthesia, Family History of Problems w/ Anesthesia Additional Past Anesthesia/Blood Transfusion Reaction / Comment(s): pt and family wakes up during sx, anethesia not as effective as it should be Past Psychological History: No Psychological Hx Reported Smoking Status: Former smoker Past Alcohol Use History: None Reported Past Drug Use History: None Reported - Past Family History Father Family Medical History: Diabetes Mellitus, Myocardial Infarction ([place]) Mother Family Medical History: COPD, Diabetes Mellitus Sister(s) Family Medical History: Cancer Additional Family Medical History / Comment(s): sister had brain cancer Brother(s) Family Medical History: Cancer Additional Family Medical History / Comment(s): 2 brothers had kidney cancer General Exam Limitations: no limitations General appearance: alert, in no apparent distress Head exam: Present: atraumatic, normocephalic, normal inspection Eye exam: Present: normal appearance, PERRL, EOMI. Absent: scleral icterus, conjunctival injection, periorbital swelling ENT exam: Present: normal oropharynx, mucous membranes moist, other (bleeding from left nare, source not visualized) Respiratory exam: Present: normal lung sounds bilaterally. Absent: respiratory distress, wheezes, rales, rhonchi, stridor Cardiovascular Exam: Present: regular rate, normal rhythm, normal heart sounds. Absent: systolic murmur, diastolic murmur, rubs, gallop, clicks Neurological exam: Present: alert, oriented X3, CN II-XII intact Psychiatric exam: Present: normal affect, normal mood Skin exam: Present: warm, dry, normal color. Absent: rash Course Vital Signs 11/27/23 11/27/23 20:37 23:21 Temperature 98 F Pulse Rate 94 83 Respiratory 18 18 Rate Blood Pressure 123/64 120/69 O2 Sat by Pulse 99 94 L Oximetry Procedures - Procedures Initial comment: nasal packing merocel left nare Medical Decision Making - Medical Decision Making Was pt. sent in by a medical professional or institution (, PA, TOOL AND DIE DESIGNER, urgent care, hospital, or penitentiary...) When possible be specific @ -No Did you speak to anyone other than the patient for history (EMS, parent, family, police, friend...)? What history was obtained from this source @ -No Did you review nursing and triage notes (agree or disagree)? Why? @ -I reviewed and agree with nursing and triage notes Were old charts reviewed (outside hosp., previous admission, EMS record, old EKG, old radiological studies, urgent care reports/EKG's, penitentiary records)? Report findings @ -No old charts were reviewed Differential Diagnosis (chest pain, altered mental status, abdominal pain women, abdominal pain men, vaginal bleeding, weakness, fever, dyspnea, syncope, headache, dizziness, GI bleed, back pain, seizure, CVA, palpatations, mental health, musculoskeletal)? @ -Anterior nosebleed, posterior nosebleed, hypertension, this list is not all inclusive EKG interpreted by me (3pts min.). @ -None X-rays interpreted by me (1pt min.). @ -None done CT interpreted by me (1pt min.). @ -None done U/S interpreted by me (1pt. min.). @ -None done What testing was considered but not performed or refused? (CT, X-rays, U/S, labs)? Why? @ -None What meds were considered but not given or refused? Why? @ -None Did you discuss the management of the patient with other professionals (professionals i.e. , PA, TOOL AND DIE DESIGNER, lab, RT, psych nurse, clinical social work aide, vault clerk, teacher, navigation officer, manager of case management)? Give summary @ -No Was smoking cessation discussed for >3mins.? @ -No Was critical care preformed (if so, how long)? @ -No Were there social determinants of health that impacted care today? How? (Homelessness, low income, unemployed, alcoholism, drug addiction, transportation, low edu. Level, literacy, decrease access to med. care, retirement, rehab)? @ -No Was there de-escalation of care discussed even if they declined (Discuss DNR or withdrawal of care, Hospice)? DNR status @ -No What co-morbidities impacted this encounter? (DM, HTN, Smoking, COPD, CAD, Cancer, CVA, ARF, Chemo, Hep., AIDS, mental health diagnosis, sleep apnea, morbid obesity)? @ -None Was patient admitted / discharged? Hospital course, mention meds given and route, prescriptions, significant lab abnormalities, going to OR and other pertinent info. @ -Discharge. Patient presented to the emergency department for evaluation of nosebleed. Afrin was attempted along with nasal clamping. Bleeding continued following this, the source of the bleeding is not able to be identified. Patient reports that she has had nasal packing in the past. Rapid rhino does not work for her. Merocel was placed in the left nare. Patient was observed following this for around 30 minutes without rebleeding. Patient comfortable with discharge home. Advised her to follow-up with her ENT. She is otisan ding agreeable with this plan. Case discussed with Dr. Travis Undiagnosed new problem with uncertain prognosis? @ -No Drug Therapy requiring intensive monitoring for toxicity (Heparin, Nitro, Insul in, Cardizem)? @ -No Were any procedures done? @ -No Diagnosis/symptom? @ -Epistaxis Acute, or Chronic, or Acute on Chronic? @ -acute Uncomplicated (without systemic symptoms) or Complicated (systemic symptoms)? @ -uncomplicated Side effects of treatment? @ -No Exacerbation, Progression, or Severe Exacerbation? @ -No Poses a threat to life or bodily function? How? (Chest pain, [place], [place], pneumonia, PE, COPD, DKA, ARF, appy, cholecystitis, CVA, Diverticulitis, Homicidal, Suicidal, threat to staff... and all critical care pts) @ -No Disposition Clinical Impression: Epistaxis, recurrent Disposition: HOME SELF-CARE Condition: Stable Instructions (If sedation given, give patient instructions): Nosebleed (ED) Additional Instructions: Please follow up with ENT on Wednesday. Return to the emergency department for new or worsening symptoms. Is patient prescribed a controlled substance at d/c from ED?: No Referrals: Dioni Monroy DO [Primary Care Provider] - 1-2 days
[2023-11-27] MEDS: OXYMETAZOLINE 0.05% NASL SPRAY 1 SPRAY BOTTLE NASAL STA (22:59)
[2023-11-27] MEDS: TRANEXAMIC ACID 1,000 MG/10 ML VIAL MISCELLANE ONE (22:59)
[2023-11-27 23:57] VITALS: BP 120/69; PULSE 83
== END 2023-11-27 23:28 | disposition home or self-care (01) ==
LOC: EC 20:32
DX: R04.0 Epistaxis (principal); Z87.891 Personal history of nicotine dependence; Z88.0 Allergy status to penicillin; Z88.5 Allergy status to narcotic agent
CPT/HCPCS: 30901; 99283; J2060

== ENCOUNTER → 2024-04-04 | Outpatient (CLI) | payer MEDICARE ==
[2024-04-04 11:27] LABS: African American GFR (CKD) >90 (>60 ml/min/1.73 sqM); Blood Urea Nitrogen 16 mg/dL (7-17); Non-African American GFR(CKD) 80 (>60 ml/min/1.73 sqM)
--- NOTE | 2024-04-04 12:52 | CT ---
EXAMINATION TYPE: CT abdomen w con CT DLP: 1872.5 mGycm, Automated exposure control for dose reduction was used. DATE OF EXAM: 04/04/2024 11:53 AM COMPARISON: CT abdomen pelvis most recent from . CLINICAL INDICATION:Female, 68 years old with history of E80.6 OTHER DISORDERS OF BILIRUBIN METABOLIS M; HIGH BILIRUBIN, QUEEZY STOMACH TECHNIQUE: Standard CT of the abdomen following the administration of 100 cc of Isovue 300 IV contr ast material. Coronal and sagittal reformats were performed. FINDINGS: LOWER CHEST: Lung bases are clear. Coronary artery calcifications. Aortic valvular calcifications. ABDOMEN LIVER: Unremarkable. No focal lesion. Noncirrhotic. GALLBLADDER AND BILE DUCTS: The gallbladder is surgically absent. Mild intra and extra hepatic biliar y duct dilatation. The common bile duct measures up to 1.1 cm the pancreatic head. No hyperdense focu s identified within the bile ducts. PANCREAS: Unremarkable. SPLEEN: Unremarkable. ADRENAL GLANDS: Unremarkable. KIDNEYS AND URETERS: No evidence of hydronephrosis or renal calculus. The kidneys enhance symmetrical ly. Subcentimeter hypodense focus within the inferior right renal cortex which is too small to charac terize but likely represents a cyst. Contrast is demonstrated within both collecting systems on the d elayed phase. STOMACH AND BOWEL: Stomach and duodenum are unremarkable. Enteric contrast reaches the mid small nader l. No focal bowel wall thickening or surrounding inflammatory changes identified. The visualized port ion of the appendix is within normal limits. No evidence of bowel obstruction. PERITONEUM: No evidence of pneumoperitoneum or free fluid. VASCULATURE: Moderate atherosclerotic calcifications are present throughout the abdominal aorta and i ts branches. No evidence of aortic aneurysm. MUSCULOSKELETAL: No acute osseous abnormalities. Mild disc degeneration changes are present throughou t the thoracolumbar spine. LYMPH NODES: No gross evidence for lymphadenopathy. SOFT TISSUE/ABDOMINAL WALL: Small fat filled umbilical hernia. IMPRESSION: Mild intra and extrahepatic biliary ductal dilatation post cholecystectomy. No focal abrupt transitio n identified. Dilatation may be physiologic. Consider further elevation with MRCP/ERCP as clinically indicated. [facility], , 04/04/2024 12:49 PM
== END | disposition home or self-care (01) ==
LOC: RADCTMAIN 10:32
PROVIDERS: ATTEND Family Medicine
DX: E80.6 Other disorders of bilirubin metabolism
CPT/HCPCS: 36415; 74160; 82565; 84520

== ENCOUNTER → 2024-06-06 | Outpatient (CLI) | payer MEDICARE ==
--- NOTE | 2024-06-06 09:15 | MR ---
MR MRCP INDICATION: Patient age:Female; 68 years old; Reason for study: K80.50 calculus of bile duct; [facility]. COMPARISON: CT abdomen 04/04/2024. TECHNIQUE: Multi planar, T2-weighted imaging with and without fat saturation and chemical shift imag ing was performed of the abdomen. Then, heavily T2 weighted imaging was utilized in order to study th e biliary system. Maximum intensity projection images were reconstructed from the original data of t he biliary tree. No Gadolinium given. FINDINGS: MRCP: The gallbladder is surgically absent. Mild intra and extra hepatic biliary ductal dilatation r edemonstrated. The common bile duct to the level of the pancreatic head measures up to 1.2 cm. The co mmon hepatic duct measures up to 1.1 cm. No focal transition point. No evidence to suggest ductal str icture or choledocholithiasis. The pancreatic duct is normal. Abdomen: The spleen, adrenal glands, and pancreas have a normal noncontrast appearance. There is some dropout of signal diffusely within the liver on out of phase imaging consistent with fatty infiltrat ion. No hydronephrosis. Couple of T2 hyperintense thin-walled cysts identified within both kidneys. IMPRESSION: 1. Mild intra and extrahepatic biliary ductal dilatation postcholecystectomy without focal transitio n point or evidence suggest stricture or choledocholithiasis. No obstructing mass identified. Likely physiologic changes due to cholecystectomy. 2. Mild hepatic steatosis. [facility], , 06/06/2024 9:12 AM
== END | disposition home or self-care (01) ==
LOC: RADMRIMAIN 06:35
PROVIDERS: ATTEND Family Medicine
DX: K80.50 Calculus of bile duct without cholangitis or cholecystitis without obstruction (principal); K76.0 Fatty (change of) liver, not elsewhere classified; N28.1 Cyst of kidney, acquired
CPT/HCPCS: 74181

== ENCOUNTER → 2024-08-28 | Outpatient (CLI) | payer MEDICARE | END | disposition home or self-care (01) | LOC: RADUSWWP 09:19 | PROVIDERS: ATTEND Internal Medicine Gastroenterology | DX: Z53.9 Procedure and treatment not carried out, unspecified reason (principal) ==

== ENCOUNTER → 2024-08-28 | Outpatient (CLI) | payer MEDICARE ==
[2024-08-28 15:09] LABS: Basophils # (A) 0.11 X 10*3/uL (0.00-0.10); Basophils % (A) 0.9 %; Eosinophils # (A) 0.34 X 10*3/uL (0.04-0.35); Eosinophils % (A) 2.8 %; HCT 53.5 % (37.2-46.3); HGB 16.6 g/dL (12.0-15.0); Lymphocytes # (A) 2.47 X 10*3/uL (0.90-5.00); Lymphocytes % (A) 20.6 %; MCH 27.7 pg (27.0-32.0); MCV 89.3 FL (80.0-97.0); Mean Platelet Volume 10.8 FL (9.5-12.2); Monocytes # (A) 0.87 X 10*3/uL (0.20-1.00); Monocytes % (A) 7.3 %; NRBC Per 100 WBC 0 X 10*3/uL (0.00-0.01); Neutrophils # (A) 8.06 X 10*3/uL (1.80-7.70); Neutrophils % (A) 67.4 %; Platelet Count 278 X 10*3/uL (140-440); RBC 5.99 X 10*6/uL (4.10-5.20); RDW 14.4 % (11.5-14.5); WBC 11.97 X 10*3/uL (4.50-10.00)
[2024-08-28 15:15] LABS: Albumin 3.7 g/dL (3.8-4.9); BUN/Creat Ratio 22.25 Ratio (12.00-20.00); Blood Urea Nitrogen 17.8 mg/dL (9.0-27.0); Calcium 9.8 mg/dL (8.7-10.3); Carbon Dioxide 34.5 mmol/L (21.6-31.8); Chloride 99 mmol/L (96-109); Globulin 3.4 g/dL (1.6-3.3); Glucose 133 mg/dL (70-110); Potassium 3.6 mmol/L (3.5-5.5); Sodium 144 mmol/L (135-145); Total Protein 7.1 g/dL (6.2-8.2)
[2024-08-28 15:16] LABS: ALT 73 U/L (8-44); AST 53 U/L (13-35); Albumin/Globulin Ratio 1.09 Ratio (1.60-3.17); Alkaline Phosphatase 87 U/L (41-126); Total Bilirubin 0.9 mg/dL (0.3-1.2)
[2024-08-28 15:32] LABS: Hepatitis B Surface Antigen Nonreactive (Nonreactive); Hepatitis C IgG Antibody Nonreactive (Nonreactive)
== END | disposition home or self-care (01) ==
LOC: LABWHC1 09:22
PROVIDERS: ATTEND Internal Medicine Gastroenterology
DX: K76.0 Fatty (change of) liver, not elsewhere classified (principal)
CPT/HCPCS: 36415; 80053; 81596; 85025; 86803; 87340